=== PATIENT | female | born 1985 | race Caucasian/White ===

== ENCOUNTER 2020-03-05 10:32 | Outpatient (REF) | payer OTHER, SELFPAY ==
--- NOTE | 2020-03-05 10:36 | XR_ITS ---
EXAMINATION: XR CHEST CLINICAL INFORMATION: Positive Covid 19. COMPARISON: None TECHNIQUE: 2 views of the chest were obtained. FINDINGS: No significant abnormality is noted involving the heart, lungs, mediastinum, bony thorax or soft tissues. XR/XR chest 2V IMPRESSION: Unremarkable chest examination.
[2020-03-05 13:52] LABS: MANUAL DIFF FLAG NO
[2020-03-05 13:56] LABS: Basophils Percent Auto 0.4 % (0-2); Eosinophils Absolute Auto 0.1 X10*3/uL (0.0-0.4); Hematocrit 37.7 % (37-47); Hemoglobin 12.6 g/dl (12.0-16.0); Imm Gran Abs Auto 0.02 X10*3/uL (0.00-0.03); Imm Gran Pct Auto 0.3 % (0.0-0.4); Lymphocytes Absolute Auto 2.7 X10*3/uL (1.2-4.9); Lymphocytes Percent Auto 38.9 % (20-40); Mean Corpuscular HGB Conc 33.4 g/dl (31.0-35.0); Mean Corpuscular Volume 86.7 fL (80-98); Mean Platelet Volume 10.4 fL (9.4-12.3); Monocytes Absolute Auto 0.5 X10*3/uL (0.1-1.2); Neutrophils Absolute Auto 3.6 X10*3/uL (2.0-8.3); Neutrophils Percent Auto 51.4 % (45-73); Platelet Count 516 X10*3/uL (160-400); Red Blood Count 4.35 X10*6/uL (4.20-5.50); Red Cell Distribution Width 12.3 % (11.0-16.0)
[2020-03-05 14:17] LABS: Alanine Aminotransferase 20 U/L (0-31); Anion Gap 14 (12-20); Aspartate Amino Transferase 19 U/L (5-31); Blood Urea Nitrogen 9 mg/dL (9-16); Calcium 9.7 mg/dL (8.4-10.2); Carbon Dioxide 26 mmol/L (22-29); Chloride 102 mmol/L (96-108); Cholesterol 156 mg/dL; Estimated Glomerular Filt Rate > 60; Glucose Fasting 83 mg/dL (60-99); HDL Cholesterol 37 mg/dL; Iron 113 mcg/dL (30-160); LDL Cholesterol Calculated 91 mg/dl; Percent Iron Saturation 23 % (15-50); Potassium 4.5 mmol/l (3.3-5.1); Sodium 137 mmol/L (135-145); Total Iron Binding Capacity 488 mcg/dL (228-428); Triglycerides 144 mg/dL; Unsaturated Iron Binding 375 ug/dL
[2020-03-05 14:38] LABS: Ferritin 10 ng/mL (10-122); TSH reflex Free T4 1.68 mIU/mL (0.32-4.0); Vitamin D 25-OH Total 17.8 ng/mL (>30)
[2020-03-05 14:50] LABS: Folate 13.8 ng/mL (> or = 4.0); Vitamin B12 196 pg/mL (200-900)
== END 2020-03-05 10:33 | disposition home or self-care (01) ==
LOC: HO.HMGCLDS 10:32
PROVIDERS: PCP Internal Medicine; Visit Provider Internal Medicine
DX: U07.1 COVID-19 (principal)
CPT/HCPCS: 36415; 71046; 80048; 80061; 82306; 82607; 82728; 82746; 83540; 84443; 84450; 84460; 85025

== ENCOUNTER 2020-03-25 09:17 | Outpatient (REF) | payer OTHER, SELFPAY ==
--- NOTE | 2020-03-25 09:54 | US_ITS ---
EXAMINATION: ULTRASOUND SOFT TISSUE HEAD AND NECK CLINICAL INFORMATION: Localized swelling and lump of the left neck COMPARISON: None TECHNIQUE: Doppler, color and grayscale evaluation of the soft tissues of the left side of the neck FINDINGS: There are multiple abnormal appearing left cervical lymph nodes. There is an abnormal appearing left cervical lymph node that measures 2 x 0.9 x 1.5 cm. This is heterogeneous appearing. Part of this lymph node appears to be hypoechoic with cortical thickening and part of this lymph node appears hyperechoic with bright echogenic foci questionable for cortical calcifications. Renal hilum appear slitlike. Flow to this lymph node is difficult to assess but there appears to be preserved hilar flow. There is an enlarged lymph node that measures 1.7 x 1.7 x 1.2 cm. This is diffusely hypoechoic with diffuse cortical thickening, slitlike hilum and preserved hilar flow. There are additional smaller lymph nodes that appear diffusely hypoechoic with cortical thickening and slitlike hilum. US/US soft tiss head and/or neck IMPRESSION: Enlarged abnormal appearing left cervical lymph nodes. Infectious, inflammatory and neoplastic process should be considered. This would be amenable to ultrasound-guided fine-needle aspiration.
[2020-03-25 11:18] LABS: MANUAL DIFF FLAG NO
[2020-03-25 11:22] LABS: Basophils Percent Auto 0.4 % (0-2); Eosinophils Absolute Auto 0.4 X10*3/uL (0.0-0.4); Eosinophils Percent Auto 5.1 % (0-4); Imm Gran Abs Auto 0.03 X10*3/uL (0.00-0.03); Imm Gran Pct Auto 0.4 % (0.0-0.4); Lymphocytes Absolute Auto 1.6 X10*3/uL (1.2-4.9); Lymphocytes Percent Auto 21.2 % (20-40); Mean Corpuscular HGB Conc 32.4 g/dl (31.0-35.0); Mean Corpuscular Hemoglobin 28.4 pg (27.0-33.0); Mean Corpuscular Volume 87.5 fL (80-98); Monocytes Absolute Auto 0.4 X10*3/uL (0.1-1.2); Monocytes Percent Auto 5.8 % (2-11); Neutrophils Absolute Auto 5.1 X10*3/uL (2.0-8.3); Neutrophils Percent Auto 67.1 % (45-73); Platelet Count 422 X10*3/uL (160-400); Red Blood Count 4.23 X10*6/uL (4.20-5.50); Red Cell Distribution Width 12.8 % (11.0-16.0); White Blood Count 7.6 X10*3/uL (4.8-10.8)
[2020-03-25 11:49] LABS: Anion Gap 10 (12-20); Blood Urea Nitrogen 10 mg/dL (9-16); Calcium 8.7 mg/dL (8.4-10.2); Carbon Dioxide 28 mmol/L (22-29); Chloride 104 mmol/L (96-108); Estimated Glomerular Filt Rate > 60; Glucose Random 94 mg/dL (60-115); Potassium 4.3 mmol/l (3.3-5.1); Sodium 138 mmol/L (135-145)
[2020-03-25 12:00] LABS: TSH reflex Free T4 2.32 mIU/mL (0.32-4.0)
[2020-03-25 12:10] LABS: Erythrocyte Sedimentation Rate 8 MM/HR (0-20)
== END 2020-03-25 09:18 | disposition home or self-care (01) ==
LOC: HO.HMGCLDS 09:17
PROVIDERS: PCP Internal Medicine; Visit Provider Nurse Practitioner Family
DX: R22.1 Localized swelling, mass and lump, neck (principal)
CPT/HCPCS: 36415; 76536; 80048; 84443; 85025; 85652

== ENCOUNTER → 2020-05-27 10:29 | Outpatient (BNVA) | payer OTHER, SELFPAY | PROVIDERS: PCP Internal Medicine; Visit Provider Physician Assistant ==

== ENCOUNTER 2020-06-07 13:03 | Outpatient (REF) | payer OTHER, SELFPAY ==
[2020-06-07 14:44] LABS: MANUAL DIFF FLAG NO
[2020-06-07 14:49] LABS: Basophils Percent Auto 0.7 % (0-2); Eosinophils Absolute Auto 0.2 X10*3/uL (0.0-0.4); Eosinophils Percent Auto 3.8 % (0-4); Hematocrit 37.2 % (37-47); Hemoglobin 11.9 g/dl (12.0-16.0); Imm Gran Abs Auto 0.01 X10*3/uL (0.00-0.03); Imm Gran Pct Auto 0.2 % (0.0-0.4); Lymphocytes Absolute Auto 2.1 X10*3/uL (1.2-4.9); Lymphocytes Percent Auto 38.5 % (20-40); Mean Corpuscular Hemoglobin 26.9 pg (27.0-33.0); Mean Corpuscular Volume 84.2 fL (80-98); Mean Platelet Volume 10.3 fL (9.4-12.3); Monocytes Absolute Auto 0.3 X10*3/uL (0.1-1.2); Monocytes Percent Auto 5.3 % (2-11); Neutrophils Absolute Auto 2.8 X10*3/uL (2.0-8.3); Neutrophils Percent Auto 51.5 % (45-73); Platelet Count 450 X10*3/uL (160-400); Red Blood Count 4.42 X10*6/uL (4.20-5.50); Red Cell Distribution Width 13.8 % (11.0-16.0); White Blood Count 5.5 X10*3/uL (4.8-10.8)
[2020-06-07 15:14] LABS: Alanine Aminotransferase 13 U/L (0-31); Albumin Level 4.5 g/dL (3.5-5.0); Alkaline Phosphatase 71 U/L (39-117); Anion Gap 12 (12-20); Aspartate Amino Transferase 15 U/L (5-31); Bilirubin Total 1.1 mg/dL (0.0-1.0); Blood Urea Nitrogen 8 mg/dL (9-16); Calcium 9.4 mg/dL (8.4-10.2); Carbon Dioxide 26 mmol/L (22-29); Chloride 105 mmol/L (96-108); Estimated Glomerular Filt Rate > 60; Glucose Random 104 mg/dL (60-115); Lactate Dehydrogenase 177 U/L (122-220); Potassium 3.9 mmol/L (3.3-5.1); Sodium 139 mmol/L (135-145); Total Protein 7.5 g/dL (6.5-8.0)
[2020-06-07 15:18] LABS: Alanine Aminotransferase 12 U/L (0-31); Albumin Level 4.5 g/dL (3.5-5.0); Alkaline Phosphatase 72 U/L (39-117); Anion Gap 11 (12-20); Aspartate Amino Transferase 15 U/L (5-31); Bilirubin Total 1.1 mg/dL (0.0-1.0); Blood Urea Nitrogen 8 mg/dL (9-16); Calcium 9.5 mg/dL (8.4-10.2); Carbon Dioxide 26 mmol/L (22-29); Chloride 105 mmol/L (96-108); Estimated Glomerular Filt Rate > 60; Glucose Random 105 mg/dL (60-115); Potassium 3.8 mmol/L (3.3-5.1); Sodium 138 mmol/L (135-145); Total Protein 7.4 g/dL (6.5-8.0)
[2020-06-07 15:28] LABS: Vitamin D 25-OH Total 32.1 ng/mL (>30)
[2020-06-07 15:39] LABS: Folate 10.3 ng/mL (> or = 4.0); Vitamin B12 281 pg/mL (200-900)
[2020-06-08 14:11] LABS: Immunoglobulin A 129 mg/dL (47-310); Immunoglobulin M 82 mg/dL (50-300)
[2020-06-10 04:10] LABS: SARS COV2 IgG Positive (Negative)
[2020-06-11 00:27] LABS: Immunoglobulin G Subclass 1 660 mg/dL (382-929); Immunoglobulin G Subclass 2 512 mg/dL (241-700); Immunoglobulin G Subclass 3 89 mg/dL (22-178); Immunoglobulin G Subclass 4 20.2 mg/dL (4-86); Immunoglobulin G Total 1223 mg/dL (600-1640)
[2020-06-19 00:21] LABS: Tetanus Antitoxiod Antibody 3.39 IU/mL
== END 2020-06-07 13:04 | disposition home or self-care (01) ==
LOC: HO.HMGCLDS 13:03
PROVIDERS: PCP Internal Medicine; Referring Provider Nurse Practitioner Family; Visit Provider Physician Assistant
DX: R59.1 Generalized enlarged lymph nodes (principal); R23.2 Flushing; Z01.84 Encounter for antibody response examination; R74.01 Elevation of levels of liver transaminase levels; R10.11 Right upper quadrant pain; E53.8 Deficiency of other specified B group vitamins; E55.9 Vitamin D deficiency, unspecified
CPT/HCPCS: 36415; 80053; 82306; 82607; 82746; 82784; 83520; 83615; 85025; 86769; 86774

== ENCOUNTER → 2020-07-09 10:23 | Outpatient (BNVA) | payer OTHER, SELFPAY | PROVIDERS: PCP Internal Medicine; Visit Provider Physician Assistant ==

== ENCOUNTER 2020-08-16 13:37 | Outpatient (REF) | payer OTHER, SELFPAY ==
[2020-08-18 07:27] LABS: SARS COV2 IgG Negative (Negative)
== END 2020-08-16 13:38 | disposition home or self-care (01) ==
LOC: HO.HMGCLDS 13:37
PROVIDERS: PCP Internal Medicine; Visit Provider Internal Medicine
DX: B94.8 Sequelae of other specified infectious and parasitic diseases (principal); K64.9 Unspecified hemorrhoids
CPT/HCPCS: 36415; 86769

== ENCOUNTER 2021-03-26 16:20 | Outpatient (REF) | payer OTHER, SELFPAY ==
--- NOTE | ~2021-03-26 | CT_ITS ---
EXAMINATION: CT CHEST WITHOUT CONTRAST CLINICAL INFORMATION: Other nonspecific abnormal finding of lung field. COMPARISON: None TECHNIQUE: Multidetector volumetric CT imaging of the chest was done. Axial MIP volume rendering provided. Sagittal and coronal reformatted images were obtained. This CT examination was performed using dose optimization techniques as appropriate, variously including the following: *Automated exposure control *Adjustment of mA and/or kV according to patient size (this includes techniques or standardized protocols for targeted exams where dose is matched to indication/reason for exam; i.e. 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 LUNGS: There are a few scattered 3 mm subpleural polygonal nodules consistent with lymph nodes. No imaging follow-up is recommended. There is no airspace disease or interstitial disease demonstrated. The airways appear normal. No bronchiectasis. MEDIASTINUM: The mediastinum is normal. PLEURA: There is no pleural effusion. No pleural mass or thickening. AXILLA: No lymphadenopathy. UPPER ABDOMEN: Unremarkable. OSSEOUS STRUCTURES: Unremarkable. CT/CT chest wo con IMPRESSION: Clear lungs. No airspace or interstitial disease. Fleischner guidelines were followed.
--- NOTE | ~2021-03-26 | XR_ITS ---
EXAMINATION: XR HIP, RIGHT CLINICAL INFORMATION: Pain COMPARISON: None TECHNIQUE: Two views of the right hip. FINDINGS: Visualized portion of the proximal right femur demonstrate no fracture. Right femoral head is well-seated within the acetabulum. Right femoral acetabular joint space is well-maintained. The pelvic ring is intact. Sacroiliac joints are grossly symmetric. XR/XR hip RT w PEL1V IMPRESSION: Unremarkable radiographs of the right hip.
== END 2021-03-26 16:21 | disposition home or self-care (01) ==
LOC: HO.CT 16:20
PROVIDERS: PCP Internal Medicine; Visit Provider Internal Medicine
DX: B94.8 Sequelae of other specified infectious and parasitic diseases (principal); R91.8 Other nonspecific abnormal finding of lung field; G89.29 Other chronic pain; M25.551 Pain in right hip; R59.0 Localized enlarged lymph nodes
CPT/HCPCS: 71250; 73502

== ENCOUNTER 2021-04-18 09:53 | Outpatient (REF) | payer OTHER, SELFPAY ==
[2021-04-18 11:12] LABS: MANUAL DIFF FLAG NO
[2021-04-18 11:19] LABS: Basophils Absolute Auto 0.1 X10*3/uL (0.0-0.2); Basophils Percent Auto 0.8 % (0-2); Eosinophils Absolute Auto 0.2 X10*3/uL (0.0-0.4); Eosinophils Percent Auto 3.2 % (0-4); Hematocrit 34.7 % (37.0-47.0); Hemoglobin 10.7 g/dl (12.0-16.0); Imm Gran Abs Auto 0.02 X10*3/uL (0.00-0.03); Imm Gran Pct Auto 0.3 % (0.0-0.4); Lymphocytes Absolute Auto 2.6 X10*3/uL (1.2-4.9); Lymphocytes Percent Auto 36.5 % (20-40); Mean Corpuscular HGB Conc 30.8 g/dl (31.0-35.0); Mean Corpuscular Hemoglobin 25.2 pg (27.0-33.0); Mean Corpuscular Volume 81.8 fL (80.0-98.0); Mean Platelet Volume 10.1 fL (9.4-12.3); Monocytes Absolute Auto 0.4 X10*3/uL (0.1-1.2); Neutrophils Absolute Auto 3.8 x10*3/uL (2.0-8.3); Neutrophils Percent Auto 53.2 % (45-73); Platelet Count 536 X10*3/uL (160-400); Red Blood Count 4.24 X10*6/uL (4.20-5.50); Red Cell Distribution Width 13.8 % (11.0-16.0); White Blood Count 7.2 X10*3/uL (4.8-10.8)
[2021-04-18 11:42] LABS: Alanine Aminotransferase 26 U/L (0-31); Anion Gap 12 (12-20); Aspartate Amino Transferase 21 U/L (5-31); Blood Urea Nitrogen 8 mg/dL (9-16); Calcium 9.5 mg/dL (8.4-10.2); Carbon Dioxide 25 mmol/L (22-29); Chloride 107 mmol/L (96-108); Cholesterol 143 mg/dL; Estimated Glomerular Filt Rate > 60; Glucose Fasting 92 mg/dL (60-99); HDL Cholesterol 30 mg/dL; LDL Cholesterol Calculated 79 mg/dl; Potassium 4.5 mmol/L (3.3-5.1); Sodium 139 mmol/L (135-145); Triglycerides 172 mg/dL
[2021-04-18 12:03] LABS: Vitamin D 25-OH Total 26.3 ng/mL (>30)
[2021-04-18 12:13] LABS: Folate 17.8 ng/mL (> or = 4.0); Vitamin B12 257 pg/mL (200-900)
== END 2021-04-18 09:54 | disposition home or self-care (01) ==
LOC: HO.HMGCLDS 09:53
PROVIDERS: PCP Internal Medicine; Visit Provider Internal Medicine
DX: Z00.01 Encounter for general adult medical examination with abnormal findings (principal); I10 Essential (primary) hypertension; D50.9 Iron deficiency anemia, unspecified; E53.8 Deficiency of other specified B group vitamins; E55.9 Vitamin D deficiency, unspecified
CPT/HCPCS: 36415; 80048; 80061; 82306; 82607; 82746; 84450; 84460; 85025

== ENCOUNTER → 2021-04-25 10:22 | Outpatient (BNVA) | payer OTHER, SELFPAY | PROVIDERS: PCP Internal Medicine; Visit Provider Physician Assistant | DX: M54.16 Radiculopathy, lumbar region (principal) | CPT/HCPCS: 99202 ==

== ENCOUNTER → 2021-06-18 13:47 | Outpatient (BNVA) | payer OTHER, SELFPAY | PROVIDERS: PCP Internal Medicine; Visit Provider Nurse Practitioner Family | DX: M53.3 Sacrococcygeal disorders, not elsewhere classified (principal) | CPT/HCPCS: 99202 ==

== ENCOUNTER 2021-08-07 08:34 | Outpatient (REF) | payer OTHER, SELFPAY ==
[2021-08-08 06:48] LABS: CT PCR NOT DETECTED (Not Detect.); NG PCR NOT DETECTED (Not Detect.)
[2021-08-08 12:51] LABS: BV Int Neg Control Negative (Negative); BV Int Pos Control Positive (Positive)
[2021-08-12 01:31] LABS: HPV mRNA E6/E7 rflx Not Detected (Not Detected)
== END 2021-08-07 08:35 | disposition home or self-care (01) ==
LOC: HO.LAB 08:34
PROVIDERS: Visit Provider Advanced Practice Midwife
DX: Z01.411 Encounter for gynecological examination (general) (routine) with abnormal findings (principal); Z11.51 Encounter for screening for human papillomavirus (HPV); Z20.2 Contact with and (suspected) exposure to infections with a predominantly sexual mode of transmission; N39.3 Stress incontinence (female) (male); N63.0 Unspecified lump in unspecified breast; M62.89 Other specified disorders of muscle; N92.0 Excessive and frequent menstruation with regular cycle; E28.2 Polycystic ovarian syndrome; Z98.890 Other specified postprocedural states
CPT/HCPCS: 87480; 87491; 87510; 87591; 87624; 87660; 88142

== ENCOUNTER 2021-09-09 12:48 | Outpatient (REF) | payer OTHER, SELFPAY ==
--- NOTE | ~2021-09-09 | US_ITS ---
EXAMINATION: US PELVIS CLINICAL INFORMATION: Polycystic ovarian syndrome COMPARISON: None TECHNIQUE: Ultrasound of the pelvis is performed using both transabdominal and transvaginal transducers along with Doppler. Transvaginal imaging is performed due to inadequate visualization transabdominally. FINDINGS: Uterus: The uterus is anteverted and measures 11.0 x 4.9 x 6.1 cm. Nabothian cysts present within the cervix. The double wall endometrial thickness is 10 mm. The uterus is smooth in contour and has normal myometrial echogenicity. No visible fibroid. Adnexa: Both ovaries are visualized. Numerous bilateral follicles present throughout both ovaries, many of which are small in peripherally distributed, however there are dominant follicles within the left ovary which measure up to 1.7 cm. The ovarian stroma does not appear particularly echogenic. There is no pelvic ascites or fluid collection. Right ovary measures 3.3 x 1.7 x 2.1 cm. Left ovary measures 4.0 x 2.3 x 2.2 cm. US/US pelvic and transvaginal IMPRESSION: There are bilateral ovarian follicles. The right ovary has an appearance which is more typical for polycystic ovarian syndrome with numerous tiny peripherally distributed follicles central echogenic stroma, however the right ovary is not particularly enlarged. Left ovary has a more heterogeneous (size and appearance) follicles with the largest measuring 1.7 cm. As such, the imaging findings are nonspecific, and possibly normal.
== END 2021-09-09 12:49 | disposition home or self-care (01) ==
LOC: HO.US 12:48
PROVIDERS: Visit Provider Advanced Practice Midwife
DX: M62.89 Other specified disorders of muscle (principal); N63.0 Unspecified lump in unspecified breast; N92.0 Excessive and frequent menstruation with regular cycle; E28.2 Polycystic ovarian syndrome
CPT/HCPCS: 76830; 76856

== ENCOUNTER 2022-01-22 08:00 | Outpatient (RCR) | payer OTHER, SELFPAY | END 2022-02-17 11:39 | disposition home or self-care (01) | LOC: HO.PT 08:00 | PROVIDERS: PCP Internal Medicine; Visit Provider Advanced Practice Midwife | DX: N39.3 Stress incontinence (female) (male) (principal) | CPT/HCPCS: 97112; 97140; 97161; 97530 ==

== ENCOUNTER 2022-06-05 12:48 | Outpatient (REF) | payer OTHER, SELFPAY ==
[2022-06-05 14:15] LABS: MANUAL DIFF FLAG NO
[2022-06-05 14:22] LABS: Basophils Percent Auto 0.6 % (0-2); Eosinophils Absolute Auto 0.1 X10*3/uL (0.0-0.4); Eosinophils Percent Auto 1.9 % (0-4); Hemoglobin 12.1 g/dl (12.0-16.0); Imm Gran Abs Auto 0.01 X10*3/uL (0.00-0.03); Imm Gran Pct Auto 0.1 % (0.0-0.4); Lymphocytes Absolute Auto 3.1 X10*3/uL (1.2-4.9); Lymphocytes Percent Auto 44.8 % (20-40); Mean Corpuscular HGB Conc 32.7 g/dl (31.0-35.0); Mean Corpuscular Hemoglobin 27.8 pg (27.0-33.0); Mean Corpuscular Volume 85.1 fL (80.0-98.0); Mean Platelet Volume 10.5 fL (9.4-12.3); Monocytes Absolute Auto 0.4 X10*3/uL (0.1-1.2); Monocytes Percent Auto 5.7 % (2-11); Neutrophils Absolute Auto 3.2 x10*3/uL (2.0-8.3); Neutrophils Percent Auto 46.9 % (45-73); Platelet Count 441 X10*3/uL (160-400); Red Blood Count 4.35 X10*6/uL (4.20-5.50); Red Cell Distribution Width 12.6 % (11.0-16.0); White Blood Count 6.9 X10*3/uL (4.8-10.8)
[2022-06-05 14:52] LABS: Iron 55 mcg/dL (30-160); Percent Iron Saturation 13 % (15-50); Total Iron Binding Capacity 408 mcg/dL (228-428); Unsaturated Iron Binding 353 ug/dL
[2022-06-05 15:07] LABS: Vitamin D 25-OH Total 22.8 ng/mL (>30)
== END 2022-06-05 12:49 | disposition home or self-care (01) ==
LOC: HO.HMGCLDS 12:48
PROVIDERS: Visit Provider Internal Medicine
DX: D50.9 Iron deficiency anemia, unspecified (principal); E55.9 Vitamin D deficiency, unspecified
CPT/HCPCS: 36415; 82306; 83540; 85025

== ENCOUNTER 2022-09-17 10:32 | Outpatient (REF) | payer OTHER, SELFPAY ==
[2022-09-18 11:12] LABS: BV Int Neg Control Negative (Negative); BV Int Pos Control Positive (Positive)
== END 2022-09-17 10:33 | disposition home or self-care (01) ==
LOC: HO.LNP 10:32
PROVIDERS: PCP Internal Medicine; Visit Provider Advanced Practice Midwife
DX: N94.9 Unspecified condition associated with female genital organs and menstrual cycle (principal)
CPT/HCPCS: 87480; 87510; 87660

== ENCOUNTER 2022-10-15 07:57 | Outpatient (AMB) | payer OTHER, SELFPAY ==
--- NOTE | 2022-10-15 07:58 | A.OFFPC_ITS ---
Vital Signs 10/15/22 08:00 Height 5 ft 4 in Weight 185 lb BMI 31.8 BP 104/66 Blood Pressure Location Lt brachial Position Sitting Pulse 73 Pulse Source Pulse Oximeter Pulse Oximetry (%) 99 Oxygen Delivery Method Room Air Intake Visit Reasons: Annual PE Intake Note: Pt is here today for PE. Allergies morphine [MORPHINE] Allergy (Severe, Verified 10/15/22 08:08) VOMITING Opioids - Morphine Analogues Allergy (Mild, Verified 10/15/22 08:08) Vomiting Medication List - Last Reconciled 10/15/22 by Alison Martin MD lorazepam 0.5 mg PO DAILY PRN multivitamin 1 tab PO DAILY vitamin B complex (B Complex-Vitamin B12 tablet) 1 tab PO DAILY Tobacco use date assessed: 10/15/22 Dental Screening Dental Screen Date: 10/15/22 Did you have a dental visit in the last 12 months?: Yes Did you have a dental problem in the last 6 months where you did not have access to dental care?: No Was dental information given to patient?: Patient has dentist HPI Annual PE HPI Details 37-year-old lady here today for physical exam. His currently being followed at [facility] for her routine Pap and pelvic exam and for possible polycystic ovarian syndrome. Up-to-date with her cervical cancer screening, with last Pap done in 2021 with benign findings. Has history of vitamin-D deficiency and low vitamin B12 levels. Currently asymptomatic. Takes an occasional lorazepam for acute anxiety attacks. Has been having pain in her right hip joint, outer aspect, radiating occasionally to right inguinal area and down right thigh outer aspect. Unable to squat or sit cross-legged on the floor due to pain. Has been compensating home with her left leg and now gets pain in the back of her left knee when she sits or stands for extended periods of time . He has tried doing physical therapy the past for the same issue with noted improvement, x-ray of hip and pelvis last year showed unremarkable findings. [facility] Medical History (Updated 10/15/22 @ 08:31 by Alison Martin MD) Anxiety disorder Cervical cancer screening COVID-19 long hauler COVID-19 virus infection Diffuse lymphadenopathy Epigastric abdominal pain Hemorrhoids Hip pain, chronic History of COVID-19 IBS (irritable bowel syndrome) Iron deficiency anemia Lateral pain of right hip Left axillary fullness Left cervical lymphadenopathy Obesity (BMI 30.0-34.9) Post-COVID syndrome Pulmonary nodules/lesions, multiple Urticaria of unknown origin Vitamin B12 deficiency Vitamin D deficiency Surgical History History of tonsillectomy Hx of lymph node biopsy S/P Family History Father AIDS Substance use disorder Mother AIDS Substance use disorder Maternal Grandmother Alzheimer's disease Dementia HTN (hypertension) Diabetes mellitus Brother Substance use disorder Mental health disorder Son No problems noted. 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: [employer] Cognitive needs: No Hearing needs: No Vision needs: Yes Female Reproductive History Menstrual Age of Menarche: 11 Date of last menstrual period: 10/06/22 control method: none Date of last pap smear: 08/08/21 Questionnaire PHQ-9 Over the last 2 weeks, how often have you been bothered by any of the following problems? 1. Little interest or pleasure in doing things: not at all 2. Feeling down, depressed, or hopeless: not at all 3. Trouble falling or staying asleep, or sleeping too much: not at all 4. Feeling tired or having little energy: several days 5. Poor appetite or overeating: not at all 6. Feeling bad about yourself - or that you are a failure or have let yourself or your family down: not at all 7. Trouble concentrating on things, such as reading the newspaper or watching television: not at all 8. Moving or speaking so slowly that other people could have noticed. Or the opposite - being so fidgety or restless that you have been moving around a lot more than usual: not at all 9. Thoughts that you would be better off or of hurting yourself in some way: not at all Total score: 1 Depression Screening Interpretation: Negative 18774 - PHQ-9 Billing: Yes Source: Developed by Drs. Kendrick Mchugh, Alexander Goetz and colleagues, with an educational kacie from [employer]. Thrive Questionnaire Date Thrive assessed: 10/15/22 I am a: Patient What is your living situation today?: I have a steady place to live Within the past 12 months, did the food you bought not last and you didn't have the money to get more?: Never true Within the past 12 months, did you worry whether your food would run out before you got money to buy more?: Never true Do you have trouble paying for medicines?: No Do you have trouble getting transportation to medical appointments?: No Do you have trouble paying your heating and electricity bill?: No Do you have trouble taking care of your child, family member or friend?: No Do you have trouble with day-to-day activities such as bathing, preparing meals, shopping, managing finances, etc.?: No Are you currently unemployed and looking for a job?: No Are you interested in more education?: No AUDIT C Alcohol Use Questionnaire (AUDIT-C) 1. How often do you have a drink containing alcohol?: Monthly or less 2. How many drinks containing alcohol do you have on a typical day when you are drinking?: 1 or 2 3. How often do you have six or more drinks on one occasion?: Never Total Score: 1 PAOLA-7 AMB Questionnaire PAOLA-7 Date PAOLA - 7 assessed: 10/15/22 Feeling nervous, anxious, or on edge: 0 = Not at all Not being able to stop or control worryin = Not at all Worrying too much about different things: 0 = Not at all Trouble relaxin = Not at all Being so restless that it is hard to sit still: 0 = Not at all Becoming easily annoyed or irritable: 0 = Not at all Feeling afraid as if something awful might happen: 0 = Not at all Total PAOLA-7 score (0-4 normal; 5-9 mild; 10-14 moderate; 15-21 severe): 0 Source: Developed by Drs. Kendrick Mchugh, Alexander Goetz and colleagues, with an educational kacie from [employer]. PAOLA-7 Assessment Billing PAOLA-7 Assessment Tool: PAOLA-7 Assessment 53967 Review of Systems Const Denies body aches, Denies chills, Denies fever(s), Denies headache(s) and Repor ts malaise Eyes Denies change in vision ENT Denies dizziness, Denies headache(s), Denies hoarseness, Denies nasal discharge, Denies nose pain, Denies odynophagia, Denies post nasal drip and Denies sore throat Card Denies chest pain, Denies rapid heart rate, Denies lightheadedness and Denies dyspnea Resp Denies cough, Denies pain on inspiration, Denies dyspnea and Denies wheezing GI Denies abdominal pain, Reports constipation (Occasional), Denies heartburn, Denies nausea and Denies odynophagia Reports no additional complaints Musc Reports as per HPI Skin/Breast Denies breast pain, Denies breast mass and Denies rash Neuro Denies dizziness and Denies headache(s) Psych Reports no additional complaints Endo Reports no additional complaints Andre/Lymph Reports no additional complaints Aller/Immun Denies wheezing Physical exam (Primary Care) Vital Signs: Last Vital Signs Pulse 73 10/15/22 08:00 BP 104/66 10/15/22 08:00 Pulse Ox 99 10/15/22 08:00 Oxygen Delivery Method Room Air 10/15/22 08:00 BMI result Body Mass Index 31.8 Tobacco/Smoking Status: Tobacco use Status Tobacco use date assessed 10/15/22 10/15/22 08:06 Patient Tobacco Use Status Former Tobacco user 10/15/22 07:59 PHQ-9: PHQ-9 Score PHQ-9: Total score 1 10/15/22 08:42 Depression Screening Interpretation: Negative Thrive Assessment: Date of Thrive Assessment Date Thrive assessed 10/15/22 10/15/22 08:06 Const General: comfortable and no acute distress Nutritional Appearance: obese Orientation/consciousness: patient oriented x3 HENMT Ears: hearing grossly normal bilaterally, external ears normal, TM's normal bilaterally and EAC's normal General nose exam: Normal external nose present, Normal nasal mucous membranes and turbinates present and No nasal discharge present Face and sinus: Yes face symmetric Mouth: Normal oral and palatal mucosa present, oropharynx normal and moist muco us membranes Eyes Other: Pale palpebral conjunctiva, anicteric Periorbital: periorbital findings normal Eyelids: Yes eyelids normal Pupils: Equal, round and reactive pupils present EOM: EOMs intact bilaterally Neck Neck: Yes full ROM, Yes no lymphadenopathy and Yes supple Chest Chest palpation & inspection: normal inspection of the chest and normal palpation of entire chest wall Breast/axilla inspection: normal inspection of the breasts and normal inspection of the axillae Breast/axilla palpation: normal palpation of the breasts and normal palpation of the axillae Resp Effort & Inspection: normal respiratory effort and able to speak in complete sentences Auscultation: clear to auscultation bilaterally Cardio Other: S1-S2 present regular rate and rhythm GI Palpation (GI): Soft to palpation, nontender, no guarding and no masses Auscultation: normal bowel sounds General: Yes no CVA tenderness Back/Spine/Pelvis Back: no CVA tenderness and No back tenderness Skin General skin exam: no rashes or lesions noted Neuro General: patient oriented x3, gait normal, moves all extremities, Normal light touch and pain sensation, no focal motor deficits, CN's II-XI intact bilaterally and normal sensation to monofilament Cranial nerves: Yes Equal, round and reactive pupils present Extrem Other: Pain on abduction flexion of right hip joint, slight tenderness on palpation over lateral aspect of right hip General: Yes normal to inspection, Yes full ROM, Yes no joint enlargement, Yes no pedal edema, Yes no calf tenderness and Yes normal gait Psych Appearance: grossly normal Mental Status: mental status grossly normal Speech and movement: Normal speech and movement present Affect: normal affect Thought process: Normal thought process present Assessment and Plan Assessment & Plan (1) Annual visit for general adult medical examination with abnormal findings: Code(s): Z00.01 - Encounter for general adult medical examination with abnormal findings Plan: Will check appropriate labs. Continue regular dental visit every 6 months and regular eye exams, at least every 2 years. Take adequate calcium in diet and vitamin-D 3 at 2000 IU per cap once a day, in addition to getting regular exercise, try aquatic exercises at the [facility]. do self-breast exam, and recommended to get yearly mammogram, starting at age 40. Patient has had reactions from COVID vaccinations does not want to get vaccinated again advised to get yearly flu shots, up-to-date with her Tdap (2) Vitamin D deficiency: Code(s): E55.9 - Vitamin D deficiency, unspecified Plan: Will check vitamin-D level (3) Anxiety disorder: Code(s): F41.9 - Anxiety disorder, unspecified Qualifiers: Anxiety disorder type: panic disorder without agoraphobia Qualified Code(s): F41.0 - Panic disorder [episodic paroxysmal anxiety] Plan: Occurs occasionally, takes lorazepam as needed (4) PCOS (polycystic ovarian syndrome): Code(s): E28.2 - Polycystic ovarian syndrome Plan: Currently being followed by [facility] (5) Obesity (BMI 30.0-34.9): Code(s): E66.9 - Obesity, unspecified Plan: Encouraged to healthy diet, cut back on lot of carbohydrate intake, try doing aquatic exercises, which will not aggravate her right hip pain. (6) Hx of iron deficiency anemia: Code(s): Z86.2 - Personal history of diseases of the blood and blood-forming organs and certain disorders involving the immune mechanism Plan: Will check hemoglobin hematocrit and iron profile. Encouraged to eat more green leafy vegetables, and lean meat which contains iron (7) Lateral pain of right hip: Code(s): M25.551 - Pain in right hip Plan: Pain now radiating to right groin and down lateral aspect of right thigh, has tried physical therapy in the past which has not helped. [place] back to orthopedics for further evaluation management (8) Hx of non anemic vitamin B12 deficiency: Code(s): Z86.39 - Personal history of other endocrine, nutritional and metabolic disease Plan: Currently taking vitamin B12 supplements, will check B12 level Orders: Orders Vitamin B12 and Folate Today E55.9 - Vitamin D deficiency, unspecified, E66.9 - Obesity, unspecified, Z00.01 - Encounter for general adult medical examination with abnormal findings, Z13.1 - Encounter for screening for diabetes mellitus, Z13.220 - Encounter for screening for lipoid disorders, Z86.39 - Personal history of other endocrine, nutritional and metabolic disease Glucose Fasting Today E55.9 - Vitamin D deficiency, unspecified, E66.9 - Obesity, unspecified, Z00.01 - Encounter for general adult medical examination with abnormal findings, Z13.1 - Encounter for screening for diabetes mellitus, Z13.220 - Encounter for screening for lipoid disorders Lipid Panel Today E55.9 - Vitamin D deficiency, unspecified, E66.9 - Obesity, unspecified, Z00.01 - Encounter for general adult medical examination with abnormal findings, Z13.1 - Encounter for screening for diabetes mellitus, Z13.220 - Encounter for screening for lipoid disorders Vitamin D 25-OH Total Today E55.9 - Vitamin D deficiency, unspecified, E66.9 - Obesity, unspecified, Z00.01 - Encounter for general adult medical examination with abnormal findings, Z13.1 - Encounter for screening for diabetes mellitus, Z13.220 - Encounter for screening for lipoid disorders IRON PROFILE Today Z86.2 - Personal history of diseases of the blood and blood- forming organs and certain disorders involving the immune mechanism Hemoglobin and Hematocrit Today Z86.2 - Personal history of diseases of the blood and blood-forming organs and certain disorders involving the immune mechanism Referrals Orthopedics Referral M25.551 - Pain in right hip Coding Level of Care Code Est Pt [facility] Care [id number]) Diagnoses Annual visit for general adult medical examination with abnormal findings Z00.01 Vitamin D deficiency E55.9 Anxiety disorder F41.0 Anxiety disorder type: panic disorder without agoraphobia PCOS (polycystic ovarian syndrome) E28.2 Obesity (BMI 30.0-34.9) E66.9 Hx of iron deficiency anemia Z86.2 Lateral pain of right hip M25.551 Hx of non anemic vitamin B12 deficiency Z86.39 Additional Codes PAOLA-7 Assessment Billing - PAOLA-7 Assessment Tool: PAOLA-7 Assessment [id number] ([id number])
[2022-10-15 08:00] VITALS: BP 104/66; PULSE 73; O2SAT 99; BMI 31.8
== END 2022-10-15 11:05 | disposition home or self-care (01) ==
PROVIDERS: Visit Provider Internal Medicine
DX: Z00.01 Encounter for general adult medical examination with abnormal findings (principal); E55.9 Vitamin D deficiency, unspecified; E28.2 Polycystic ovarian syndrome; Z86.2 Personal history of diseases of the blood and blood-forming organs and certain disorders involving the immune mechanism; Z86.39 Personal history of other endocrine, nutritional and metabolic disease; F41.0 Panic disorder [episodic paroxysmal anxiety]; E66.9 Obesity, unspecified; M25.551 Pain in right hip
CPT/HCPCS: 99395

== ENCOUNTER 2022-10-15 08:36 | Outpatient (REF) | payer BC, OTHER, SELFPAY ==
[2022-10-15 12:08] LABS: Hematocrit 36.5 % (37.0-47.0); Hemoglobin 11.5 g/dl (12.0-16.0)
[2022-10-15 13:00] LABS: Cholesterol 173 mg/dL; Glucose Fasting 88 mg/dL (60-99); HDL Cholesterol 38 mg/dL; Iron 82 mcg/dL (30-160); LDL Cholesterol Calculated 100 mg/dl; Percent Iron Saturation 18 % (15-50); Total Iron Binding Capacity 452 mcg/dL (228-428); Triglycerides 179 mg/dL; Unsaturated Iron Binding 370 ug/dL; Vitamin D 25-OH Total 47.7 ng/mL (>30)
[2022-10-15 13:03] LABS: Vitamin B12 289 pg/mL (200-900)
== END 2022-10-15 08:37 | disposition home or self-care (01) ==
LOC: HO.HMGCLDS 08:36
PROVIDERS: PCP Internal Medicine; Visit Provider Internal Medicine
DX: Z00.01 Encounter for general adult medical examination with abnormal findings (principal); E66.9 Obesity, unspecified; E55.9 Vitamin D deficiency, unspecified; Z13.220 Encounter for screening for lipoid disorders; Z13.1 Encounter for screening for diabetes mellitus; Z86.39 Personal history of other endocrine, nutritional and metabolic disease; Z86.2 Personal history of diseases of the blood and blood-forming organs and certain disorders involving the immune mechanism
CPT/HCPCS: 36415; 80061; 82306; 82607; 82746; 82947; 83540; 85014; 85018

== ENCOUNTER 2022-11-06 09:41 | Outpatient (REF) | payer OTHER, BC, SELFPAY ==
--- NOTE | ~2022-11-06 | XR_ITS ---
EXAMINATION: XR PELVIS CLINICAL INFORMATION: Pain in unspecified hip COMPARISON: 03/26/2021 TECHNIQUE: AP view of the pelvis. FINDINGS: Bilateral hip joint spaces are symmetric and preserved. Hypertrophic change/soft tissue calcifications identified adjacent to the bilateral greater trochanters. Mild asymmetric degenerative changes with sclerosis left sacroiliac joint. Tiny calcification right hemipelvis likely vascular. XR/XR pelvis 1-2V IMPRESSION: Symmetric bilateral hip joint spaces on single AP view. Mild asymmetric degenerative changes with sclerosis left sacroiliac joint. Additional imaging with CT scan or MRI should be considered for better visualization as these modalities are much more sensitive for detection of fracture or other underlying pathology.
== END 2022-11-06 09:42 | disposition home or self-care (01) ==
LOC: HO.HOSX 09:41
PROVIDERS: Visit Provider Orthopaedic Surgery
DX: M25.851 Other specified joint disorders, right hip (principal)
CPT/HCPCS: 72170; 99212

== ENCOUNTER 2022-11-06 10:20 | Outpatient (AMB) | payer OTHER, BC, SELFPAY ==
[2022-11-06 10:31] VITALS: BMI 31.8
--- NOTE | 2022-11-06 10:31 | MHC.OFFVIS ---
Intake Vital Signs 11/06/22 10:31 Height 5 ft 4 in Weight 185 lb BMI 31.8 Intake Visit Reasons: OV - Rt hip pain Intake Note: Denisse is a 37 year old female who presents today for a follow up of her right hip pain. She was last seen with Janene who referred her to Pain Mgmt for radiculopathy, she did follow up with pain for this. She complains of increased pain that now is felt in the groin area. She feels increased pain with prolonged sitting, crossing her legs and finds releif with increased acitivity. Allergies morphine [MORPHINE] Allergy (Severe, Verified 10/15/22 08:08) VOMITING Opioids - Morphine Analogues Allergy (Mild, Verified 10/15/22 08:08) Vomiting HPI OV - Rt hip pain HPI Details Denisse Carroll is a 37-year-old female who presents with right hip pain. The patient was last seen by in the office by Janene Kruger PA-C, who referred her to Pain Management for radiculopathy. She states she has had an increase in pain in the since being seen in the office. She reports the pain is now located in the groin area. She claims she has an increase in pain with prolonged sitting and crossing her legs. She states she has some relief with increased activities. She states she attend physical therapy for a few months and completed all her sessions. [facility] Medical History Anxiety disorder Cervical cancer screening COVID-19 long hauler COVID-19 virus infection Diffuse lymphadenopathy Epigastric abdominal pain Hemorrhoids Hip pain, chronic History of COVID-19 IBS (irritable bowel syndrome) Iron deficiency anemia Lateral pain of right hip Left axillary fullness Left cervical lymphadenopathy Obesity (BMI 30.0-34.9) Post-COVID syndrome Pulmonary nodules/lesions, multiple Urticaria of unknown origin Vitamin B12 deficiency Vitamin D deficiency Surgical History History of tonsillectomy Hx of lymph node biopsy S/P Family History Father AIDS Substance use disorder Mother AIDS Substance use disorder Maternal Grandmother Alzheimer's disease Dementia HTN (hypertension) Diabetes mellitus Brother Substance use disorder Mental health disorder Son No problems noted. 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 Cognitive needs: No Hearing needs: No Vision needs: Yes Female Reproductive History Menstrual Age of Menarche: 11 Review of Systems Const All systems reviewed & are unremarkable except as noted in HPI and below Physical Exam Vital Signs: BMI result Body Mass Index 31.8 Const General: cooperative, healthy appearing and no acute distress Orientation/consciousness: patient oriented x3 Resp Effort & Inspection: normal respiratory effort and able to speak in complete sentences Cardio Rate: regular rate Peripheral pulses: Peripheral pulses 2+ throughout GI Palpation (GI): Soft to palpation Skin General skin exam: no rashes or lesions noted Lesions: no lesions Rashes: no rashes Neuro General: patient oriented x3 Extrem Other: Right hip: Full ROM in the right hip Groin pain with flexion and external rotation, more so with flexion and internal rotation. Negative hip flexor test. Assessment & Plan Assessment & Plan (1) Right hip impingement syndrome: Code(s): M25.851 - Other specified joint disorders, right hip Plan I discussed the role of an intra-articular injection in the right hip and physical therapy as a non-surgical option verses surgical intervention. At this time she is not interested in surgical intervention and would like to defer the MRI at this time. She will call the office should she want to move forward with the MRI. She will be referred for physical therapy for hip impingement syndrome. Orders: Orders XR pelvis 1-2V 11/06/22 M25.559 - Pain in unspecified hip PT Evaluation and Treatment 11/06/22 M25.851 - Other specified joint disorders, right hip Patient Instructions: Scribed for Dr. Adeel Medellin by Ruthie Fernandez medical recruiter, on 10/27/2022 at 10:46 am, EST. Coding Level of Care Code Est Pt Level 4 (82067) Diagnoses Right hip impingement syndrome M25.851
== END 2022-11-06 11:24 | disposition home or self-care (01) ==
PROVIDERS: PCP Internal Medicine; Visit Provider Orthopaedic Surgery
DX: M25.851 Other specified joint disorders, right hip (principal)
CPT/HCPCS: 99214

== ENCOUNTER 2022-11-26 08:07 | Outpatient (AMB) | payer BC, OTHER, SELFPAY ==
[2022-11-26 08:11] VITALS: BP 126/70; PULSE 73; TEMP 36.4; O2SAT 100; BMI 31.6
--- NOTE | 2022-11-26 08:11 | MHC.OFFWIV ---
Intake Vital Signs 11/26/22 08:11 Height 5 ft 4 in Weight 184 lb 2 oz BMI 31.6 BP 126/70 Blood Pressure Location Lt brachial Position Sitting Pulse 73 Pulse Source Pulse Oximeter Temp 97.6 F Temp Source Temporal Artery Scan Pulse Oximetry (%) 100 Intake Visit Reasons: EP, Right hip pain Intake Note: pt is here for c/o right hip pain denies injury. ongoing issue sees ortho but pain has been worse then ever and unable to put weight Patient Tobacco Use Status: Former Tobacco user Allergies morphine [MORPHINE] Allergy (Severe, Verified 11/26/22 08:18) VOMITING Opioids - Morphine Analogues Allergy (Mild, Verified 11/26/22 08:18) Vomiting Do you need a note to return to daycare/school/sports/work: Yes HPI HPI Comments History of Present Illness Details 37-year-old female presents with right hip pain. Patient has had ongoing issues with her hip off and on. She has been to orthopedics and physical therapy without much relief. The pain started approximately 2 days ago. she has had difficulty ambulating as well as pain with sitting. She denies fevers chills history of instrumentation falls or trauma. [facility] Medical History Anxiety disorder Cervical cancer screening COVID-19 long hauler COVID-19 virus infection Diffuse lymphadenopathy Epigastric abdominal pain Hemorrhoids Hip pain, chronic History of COVID-19 IBS (irritable bowel syndrome) Iron deficiency anemia Lateral pain of right hip Left axillary fullness Left cervical lymphadenopathy Obesity (BMI 30.0-34.9) Post-COVID syndrome Pulmonary nodules/lesions, multiple Urticaria of unknown origin Vitamin B12 deficiency Vitamin D deficiency Surgical History History of tonsillectomy Hx of lymph node biopsy S/P Family History Father AIDS Substance use disorder Mother AIDS Substance use disorder Maternal Grandmother Alzheimer's disease Dementia HTN (hypertension) Diabetes mellitus Brother Substance use disorder Mental health disorder Son No problems noted. 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 No midline tenderness in the back. Able to bear weight. Physical Exam Vital Signs: Last Vital Signs Temp 97.6 F 11/26/22 08:11 Pulse 73 11/26/22 08:11 BP 126/70 11/26/22 08:11 Pulse Ox 100 11/26/22 08:11 BMI result Body Mass Index 31.6 Assessment & Plan Assessment & Plan (1) Hip pain: Code(s): M25.559 - Pain in unspecified hip (2) Right hip impingement syndrome: Code(s): M25.851 - Other specified joint disorders, right hip Plan Patient's signs and symptoms most consistent with trochanteric bursitis. Low suspicion for septic joint given no fever history of instrumentation or other systemic signs of illness. Low suspicion for fracture dislocation given no trauma. Will provide Toradol and prednisone for further orthopedics. Will order x-ray. Discharge instructions, follow up and treatment are discussed with patient in my usual fashion. Alternatives in treatment are also discussed. The patient will return for worsening symptoms or as needed. Advised that any labs/imaging ordered will be followed up on and contact made if further treatment needed. Counseled that patient's condition may require further evaluation and/or treatment. Symptoms of concern for worsening disorder discussed in detail in my customary manner. Patient does verbalize understanding of the plan, there are no apparent barriers to communication. The patient is given the opportunity to ask questions and have them answered to his/her satisfaction Orders: Orders XR hip RT min 2V Today M25.559 - Pain in unspecified hip Referrals Orthopedics Referral M25.851 - Other specified joint disorders, right hip Medications: New ketorolac 10 mg PO TID 5 days PRN 15 tabs 0RF pain prednisone 40 mg (2 x 20 mg) PO DAILY 3 days 6 tabs 0RF lidocaine 5% leave on most painful area for up to 12 hrs 1 patch topical DAILY 15 ea 0RF Coding Level of Care Code Est Pt Level 3 (29428) Diagnoses Hip pain M25.559 Right hip impingement syndrome M25.851
== END 2022-11-26 08:52 | disposition home or self-care (01) ==
PROVIDERS: PCP Internal Medicine; Visit Provider Physician Assistant
DX: M25.559 Pain in unspecified hip (principal); M25.851 Other specified joint disorders, right hip
CPT/HCPCS: 99213

== ENCOUNTER 2022-11-26 08:48 | Outpatient (REF) | payer BC, OTHER, SELFPAY ==
--- NOTE | ~2022-11-26 | XR_ITS ---
EXAMINATION: XR HIP, RIGHT CLINICAL INFORMATION: Right hip pain. COMPARISON: 11/06/2022 and 03/26/2021 TECHNIQUE: Two views of the right hip. FINDINGS: Alignment is anatomic. Hip joint space is maintained. No displaced fracture or dislocation. Hypertrophic changes/soft tissue calcifications identified along the greater trochanter. XR/XR hip RT min 2V IMPRESSION: No acute abnormality.
== END 2022-11-26 08:49 | disposition home or self-care (01) ==
LOC: HO.HMGCX 08:48
PROVIDERS: PCP Internal Medicine; Visit Provider Physician Assistant
DX: M25.551 Pain in right hip (principal)
CPT/HCPCS: 73502

== ENCOUNTER 2022-12-26 09:31 | Outpatient (REF) | payer BC, OTHER, SELFPAY | END 2022-12-26 09:32 | disposition home or self-care (01) | LOC: HO.MRI 09:31 | PROVIDERS: PCP Internal Medicine; Visit Provider Orthopaedic Surgery | DX: M25.851 Other specified joint disorders, right hip (principal) | CPT/HCPCS: 73721 ==

== ENCOUNTER 2023-01-21 08:27 | Outpatient (AMB) | payer BC, OTHER, SELFPAY ==
--- NOTE | 2023-01-21 08:30 | A.OFFVIS_ITS ---
Intake Intake Visit Reasons: OV - Right Hip MRI follow up Intake Note: Denisse is a 38 year old female who presents today for an MRI review of the right hip. She has been working with physical therapy, but reports that her pain has increased significantly making ambulation quite painful and difficult. [facility] She was giving Ketorlac and Prednisone which has improved her pain. Allergies morphine [MORPHINE] Allergy (Severe, Verified 11/26/22 08:18) VOMITING Opioids - Morphine Analogues Allergy (Mild, Verified 11/26/22 08:18) Vomiting HPI OV - Right Hip MRI follow up HPI Details Denisse is a 38 year old woman who returns for an MRI review of her right hip impingement. She says she is doing well now and her pain has improved. She is happy that she is able to walk now without pain She was seen at a walk-in clinic on 11/26/22 who suspected she had trochanteric bursitis. She was prescribed Toradol and a tapering Prednisone course, which she found helpful. She has completed several courses of PT, without much relief. [facility] Medical History Anxiety disorder Cervical cancer screening COVID-19 long hauler COVID-19 virus infection Diffuse lymphadenopathy Epigastric abdominal pain Hemorrhoids Hip pain, chronic History of COVID-19 IBS (irritable bowel syndrome) Iron deficiency anemia Lateral pain of right hip Left axillary fullness Left cervical lymphadenopathy Obesity (BMI 30.0-34.9) Post-COVID syndrome Pulmonary nodules/lesions, multiple Urticaria of unknown origin Vitamin B12 deficiency Vitamin D deficiency Surgical History History of tonsillectomy Hx of lymph node biopsy S/P Family History Father AIDS Substance use disorder Mother AIDS Substance use disorder Maternal Grandmother Alzheimer's disease Dementia HTN (hypertension) Diabetes mellitus Brother Substance use disorder Mental health disorder Son No problems noted. 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 Cognitive needs: No Hearing needs: No Vision needs: Yes Female Reproductive History Menstrual Age of Menarche: 11 Review of Systems Const All systems reviewed & are unremarkable except as noted in HPI and below Physical Exam Const General: no acute distress, alert and awake Orientation/consciousness: patient oriented x3 HEENT Head: Yes normocephalic and Yes atraumatic Eyes EOM: EOMs intact bilaterally Resp Effort & Inspection: normal respiratory effort and able to speak in complete sentences Cardio Jugular venous distension: no JVD Skin General skin exam: turgor normal Rashes: no rashes Neuro General: patient oriented x3 Extrem Other: Right Hip: No TTP Walking normally Psych Appearance: grossly normal Affect: normal affect Attitude: cooperative Results Reviewed Results Reviewed: I personally reviewed relevant MR images 1. Moderate gluteus minimus tendinosis with undersurface partial tearing measuring 3.4 cm in craniocaudal dimension. More mild gluteus medius tendinosis. 2. No acute osseous abnormality. No stress reaction, fracture, or avascular necrosis. Assessment & Plan Assessment & Plan (1) Right hip impingement syndrome: Code(s): M25.851 - Other specified joint disorders, right hip Plan: This is a 38 year old woman with right hip impingement. She has no complaints of pain today, and is happy that her symptoms have improved. She finished a course of PO Prednisone and Toradol, with good relief. I recommend she remain active as tolerated. No intervention warranted. She can follow up prn Plan Scribed for Adeel Medellin MD by Jevon Childers, biomedical analytical scientist, on 01/21/23 at 9:00 AM, EST. Coding Level of Care Code Est Pt Level 4 (07889) Diagnoses Right hip impingement syndrome M25.851
== END 2023-01-21 09:43 | disposition home or self-care (01) ==
PROVIDERS: PCP Internal Medicine; Visit Provider Orthopaedic Surgery
DX: M25.851 Other specified joint disorders, right hip (principal)
CPT/HCPCS: 99214

== ENCOUNTER → 2023-01-21 08:27 | Outpatient (BNVA) | payer BC, OTHER, SELFPAY | PROVIDERS: PCP Internal Medicine; Visit Provider Orthopaedic Surgery ==

== ENCOUNTER 2023-04-21 13:28 | Outpatient (AMB) | payer BC, MEDICAID, SELFPAY ==
--- NOTE | 2023-04-21 13:42 | MHC.PC.OV ---
Vital Signs 04/21/23 13:51 Height 5 ft 4 in Weight 197 lb BMI 33.8 BP 112/72 Blood Pressure Location Rt brachial Position Sitting Pulse 70 Pulse Source Pulse Oximeter Pulse Oximetry (%) 100 Oxygen Delivery Method Room Air Intake Visit Reasons: ongoing pain, chest and upper back Intake Note: Pt is here today c/o upper mid diaphram discomfort into upper back pain: 2 episodes in a week: at times discomfort starts after she eats Allergies morphine [MORPHINE] Allergy (Severe, Verified 04/21/23 14:03) VOMITING Opioids - Morphine Analogues Allergy (Mild, Verified 04/21/23 14:03) Vomiting Medication List - Last Reconciled 04/21/23 by Alison Martin MD lorazepam 0.5 mg PO DAILY PRN multivitamin 1 tab PO DAILY Tobacco use date assessed: 04/21/23 Dental Screening Dental Screen Date: 04/21/23 Did you have a dental visit in the last 12 months?: Yes Did you have a dental problem in the last 6 months where you did not have access to dental care?: No Was dental information given to patient?: Patient has dentist HPI ongoing pain, chest and upper back HPI Details 38-year-old lady here today complaining of epigastric discomfort, radiating to right side and 2 right upper back which has been present now for the last several days. This was aggravated by food intake, and accompanied by nausea but no vomiting . Denies any alteration in bowel movements, no melena or hematochezia reported. [facility] Medical History (Updated 04/21/23 @ 14:11 by Alison Martin MD) Epigastric abdominal pain Iron deficiency anemia Lateral pain of right hip Cervical cancer screening Left axillary fullness History of COVID-19 Hip pain, chronic Pulmonary nodules/lesions, multiple Hemorrhoids COVID-19 long hauler IBS (irritable bowel syndrome) Post-COVID syndrome Diffuse lymphadenopathy Urticaria of unknown origin Left cervical lymphadenopathy Vitamin D deficiency COVID-19 virus infection Obesity (BMI 30.0-34.9) Vitamin B12 deficiency Anxiety disorder Surgical History Hx of lymph node biopsy S/P History of tonsillectomy Family History Father AIDS Substance use disorder Mother AIDS Substance use disorder Maternal Grandmother Alzheimer's disease Dementia HTN (hypertension) Diabetes mellitus Brother Substance use disorder Mental health disorder Son No problems noted. 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 1. Little interest or pleasure in doing things: not at all 2. Feeling down, depressed, or hopeless: not at all 3. Trouble falling or staying asleep, or sleeping too much: not at all 4. Feeling tired or having little energy: not at all 5. Poor appetite or overeating: not at all 6. Feeling bad about yourself - or that you are a failure or have let yourself or your family down: not at all 7. Trouble concentrating on things, such as reading the newspaper or watching television: not at all 9. Thoughts that you would be better off or of hurting yourself in some way: not at all Depression Screening Interpretation: Negative Depression Screening Done: Yes 73575 - PHQ-9 Billing: Yes Source: Developed by Drs. Kendrick Mchugh, Medina Jolly, Alexander Shirley and colleagues, with an educational kacie from [employer]. Thrive Questionnaire Date Thrive assessed: 04/21/23 I am a: Patient What is your living situation today?: I have a steady place to live Within the past 12 months, did the food you bought not last and you didn't have the money to get more?: Never true Within the past 12 months, did you worry whether your food would run out before you got money to buy more?: Never true Do you have trouble paying for medicines?: No Do you have trouble getting transportation to medical appointments?: No Do you have trouble paying your heating and electricity bill?: No Do you have trouble taking care of your child, family member or friend?: No Do you have trouble with day-to-day activities such as bathing, preparing meals, shopping, managing finances, etc.?: No Are you currently unemployed and looking for a job?: No Are you interested in more education?: No THRIVE Score: 0 AUDIT C Alcohol Use Questionnaire (AUDIT-C) 1. How often do you have a drink containing alcohol?: Monthly or less 2. How many drinks containing alcohol do you have on a typical day when you are drinking?: 1 or 2 3. How often do you have six or more drinks on one occasion?: Never Total Score: 1 PAOLA-7 AMB Questionnaire PAOLA-7 Date PAOLA - 7 assessed: 04/21/23 Feeling nervous, anxious, or on edge: 0 = Not at all Not being able to stop or control worryin = Not at all Worrying too much about different things: 0 = Not at all Trouble relaxin = Not at all Being so restless that it is hard to sit still: 0 = Not at all Becoming easily annoyed or irritable: 0 = Not at all Feeling afraid as if something awful might happen: 0 = Not at all Total PAOLA-7 score (0-4 normal; 5-9 mild; 10-14 moderate; 15-21 severe): 0 Source: Developed by Drs. Kendrick Mchugh, Medina Jolly, Alexander Shirley and colleagues, with an educational kacie from [employer]. PAOLA-7 Assessment Billing PAOLA-7 Assessment Tool: PAOLA-7 Assessment 61953 Review of Systems Const All systems reviewed & are unremarkable except as noted in HPI and below Physical exam (Primary Care) Vital Signs: Last Vital Signs Pulse 70 04/21/23 13:51 BP 112/72 04/21/23 13:51 Pulse Ox 100 04/21/23 13:51 Oxygen Delivery Method Room Air 04/21/23 13:51 BMI result Body Mass Index 33.8 Tobacco/Smoking Status: Tobacco use Status Tobacco use date assessed 04/21/23 04/21/23 13:56 Patient Tobacco Use Status Former Tobacco user 04/21/23 13:42 e-Cigarette/Vaping Use Never Used 04/21/23 13:56 Depression Screening Interpretation: Negative Thrive Assessment: Date of Thrive Assessment Date Thrive assessed 04/21/23 04/21/23 13:57 Const Other: Alert oriented x3, no acute distress noted ambulatory normal gait. HENMT Mouth: Normal oral and palatal mucosa present, oropharynx normal and moist mucous membranes Eyes General: appearance normal, both eyes and all related structures Conjunctivae: conjunctivae normal Sclerae: sclerae normal Neck Neck: Yes normal visual inspection, Yes full ROM and Yes no lymphadenopathy Resp Auscultation: clear to auscultation bilaterally Cardio Other: S1-S2 present regular rate and rhythm GI Other: Slight tenderness on palpation over epigastric and right upper quadrant of abdomen, no rebound or guarding. Assessment and Plan Assessment & Plan (1) Epigastric abdominal pain: Code(s): R10.13 - Epigastric pain Plan: Comprehensive metabolic panel CBC with differential, lipase amylase and lipid panel ordered. Ultrasound of abdomen also ordered to rule out gallstones and upper GI series also ordered to check for any evidence of gastritis, or GERD. Empirically started on pantoprazole 40 mg per capsule to take once a day an hour before eating. Orders: Orders Comprehensive [place]. Panel Fast 04/22/23 D50.9 - Iron deficiency anemia, unspecified, R10.13 - Epigastric pain Complete Blood Count Auto Diff 04/22/23 D50.9 - Iron deficiency anemia, unspecified, R10.13 - Epigastric pain Lipase 04/22/23 D50.9 - Iron deficiency anemia, unspecified, R10.13 - Epigastric pain Lipid Panel 04/22/23 D50.9 - Iron deficiency anemia, unspecified, R10.13 - Epigastric pain Amylase 04/22/23 D50.9 - Iron deficiency anemia, unspecified, R10.13 - Epigastric pain US abdomen complete 04/21/23 R10.13 - Epigastric pain FL upper GI series 04/21/23 D50.9 - Iron deficiency anemia, unspecified, R10.13 - Epigastric pain Medications: New pantoprazole Take 1 hour before eating 40 mg PO DAILY 30 tabs 1RF Coding Level of Care Code Est Pt Level 3 (57686) Diagnoses Epigastric abdominal pain R10.13 Additional Codes PAOLA-7 Assessment Billing - PAOLA-7 Assessment Tool: PAOLA-7 Assessment [id number] ([id number])
[2023-04-21 13:51] VITALS: BP 112/72; PULSE 70; O2SAT 100; BMI 33.8
== END 2023-04-21 15:49 | disposition home or self-care (01) ==
PROVIDERS: PCP Internal Medicine; Visit Provider Internal Medicine
DX: R10.13 Epigastric pain (principal)
CPT/HCPCS: 99213

== ENCOUNTER 2023-04-22 09:12 | Outpatient (REF) | payer BC, SELFPAY ==
[2023-04-22 11:14] LABS: MANUAL DIFF FLAG NO
[2023-04-22 11:40] LABS: Basophils Absolute Auto 0.1 X10*3/uL (0.0-0.2); Basophils Percent Auto 0.6 % (0-2); Eosinophils Absolute Auto 0.4 X10*3/uL (0.0-0.4); Eosinophils Percent Auto 4.3 % (0-4); Hematocrit 35.5 % (37.0-47.0); Hemoglobin 11.3 g/dl (12.0-16.0); Imm Gran Abs Auto 0.03 X10*3/uL (0.00-0.03); Imm Gran Pct Auto 0.4 % (0.0-0.4); Lymphocytes Absolute Auto 2.7 X10*3/uL (1.2-4.9); Mean Corpuscular HGB Conc 31.8 g/dl (31.0-35.0); Mean Corpuscular Hemoglobin 24.6 pg (27.0-33.0); Mean Corpuscular Volume 77.2 fL (80.0-98.0); Mean Platelet Volume 9.9 fL (9.4-12.3); Monocytes Absolute Auto 0.6 X10*3/uL (0.1-1.2); Monocytes Percent Auto 6.5 % (2-11); Neutrophils Absolute Auto 4.7 x10*3/uL (2.0-8.3); Neutrophils Percent Auto 56.2 % (45-73); Platelet Count 532 X10*3/uL (160-400); Red Cell Distribution Width 14.6 % (11.0-16.0); White Blood Count 8.4 X10*3/uL (4.8-10.8)
[2023-04-22 11:50] LABS: Alanine Aminotransferase 15 U/L (0-31); Albumin Level 4.2 g/dL (3.5-5.0); Alkaline Phosphatase 69 U/L (39-117); Amylase 47 U/L (28-100); Anion Gap 13 (12-20); Aspartate Amino Transferase 16 U/L (5-31); Blood Urea Nitrogen 11 mg/dL (9-16); Calcium 9.5 mg/dL (8.4-10.2); Carbon Dioxide 26 mmol/L (22-29); Chloride 106 mmol/L (96-108); Cholesterol 144 mg/dL (<200); Estimated Glomerular Filt Rate > 60; Glucose Fasting 93 mg/dL (60-99); HDL Cholesterol 35 mg/dL (>40); LDL Cholesterol Calculated 77 mg/dL (<100); Lipase 20 U/L (8-78); Potassium 4.6 mmol/L (3.3-5.1); Sodium 140 mmol/L (135-145); Total Protein 7.2 g/dL (6.5-8.0); Triglycerides 162 mg/dL (<150)
== END 2023-04-22 09:13 | disposition home or self-care (01) ==
LOC: HO.HMGCLDS 09:12
PROVIDERS: PCP Internal Medicine; Visit Provider Internal Medicine
DX: R10.13 Epigastric pain (principal); D50.9 Iron deficiency anemia, unspecified
CPT/HCPCS: 36415; 80053; 80061; 82150; 83690; 85025

== ENCOUNTER 2023-06-17 08:23 | Outpatient (REF) | payer BC, SELFPAY ==
--- NOTE | ~2023-06-17 | FL_ITS ---
EXAMINATION: XR FLUOROSCOPY UPPER GI WITH AIR CLINICAL INFORMATION: Epigastric pain COMPARISON: None TECHNIQUE: Fluoroscopic air contrast upper GI examination was performed utilizing standard techniques with thin and thick barium and effervescent granules. Numerous spot images were obtained. FINDINGS: Dual and single contrast images of the esophagus demonstrate normal caliber, contour, and mucosal pattern. No evidence of stricture, mass, or ulcerations identified. Esophageal peristalsis was normal. No evidence of hiatus hernia identified. Gastroesophageal reflux is seen up to the midesophagus. Dual contrast and single contrast images of the stomach demonstrated a normal contour. There are multiple small areas of contrast pooling in the body of the stomach that may represent superficial aphthous ulcers. No masses are present. Mild thickening of the area gastricae. No definite rugal fold pattern thickening. Contrast freely passed into the gastric antrum and duodenal bulb without delay. Single and air-contrast images of the duodenal bulb demonstrate no abnormality. The duodenal sweep has a normal appearance, course, and mucosal fold appearance. No malrotation. The imaged proximal jejunum has a normal fold pattern and caliber. FLUOROSCOPY TIME: 2 minutes 53 seconds Number of Spot Images: 9 Number of Cine: 8 DOSE AREA PRODUCT: 1919 uGy-m2 (microgray-meter squared) FL/FL upper GI w air IMPRESSION: 1. Mild to moderate gastroesophageal reflux. 2. Multiple small areas of contrast pooling in the body the stomach that may represent superficial submucosal aphthous ulcers. Mild thickening of the mucosal areae gastricae. Findings suggest erosive gastritis. Recommend correlation with EGD. 3. No evidence of hiatus hernia. This procedure was performed by Artem Tang PA-C, and supervised by Dr. Mcintyre
== END 2023-06-17 08:24 | disposition home or self-care (01) ==
LOC: HO.XRAY 08:23
PROVIDERS: PCP Internal Medicine; Visit Provider Internal Medicine
DX: R10.13 Epigastric pain (principal); D50.9 Iron deficiency anemia, unspecified
CPT/HCPCS: 74246

== ENCOUNTER → 2023-06-17 08:25 | Outpatient (BNV) | payer BC, SELFPAY | PROVIDERS: PCP Internal Medicine; Visit Provider Physician Assistant Surgical | DX: R10.13 Epigastric pain (principal) | CPT/HCPCS: 74246 ==

== ENCOUNTER 2023-07-12 14:38 | Outpatient (AMB) | payer BC, MEDICAID, SELFPAY ==
--- NOTE | 2023-07-12 14:41 | MHC.OFFWIV ---
Intake Vital Signs 07/12/23 14:44 Height 5 ft 4 in BP 110/70 Blood Pressure Location Rt brachial Position Sitting Pulse 72 Pulse Source Pulse Oximeter Temp 98.2 F Temp Source Oral Pulse Oximetry (%) 100 Intake Visit Reasons: EP dizziness, lightheadedness,anemia Intake Note: pt is here for dizziness, lightheadedness, patient just had cholescyectomy at [facility] 3 weeks ago and just started experiencing these symptoms unsure if it related. Patient Tobacco Use Status: Former Tobacco user Allergies morphine [MORPHINE] Allergy (Severe, Verified 07/12/23 14:44) VOMITING Opioids - Morphine Analogues Allergy (Mild, Verified 07/12/23 14:44) Vomiting Do you need a note to return to daycare/school/sports/work: No HPI EP dizziness, lightheadedness,anemia HPI Details 38 yr old female presents to the office for a sick visit. Reports sx of fatigue and dizziness. History of anemia. Her menstrual cycles are heavy. Cold intolerance present. 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 Cognitive needs: No Hearing needs: No Vision needs: Yes Female Reproductive History Menstrual Age of Menarche: 11 Physical Exam Vital Signs: Last Vital Signs Temp 98.2 F 07/12/23 14:44 Pulse 72 07/12/23 14:44 BP 110/70 07/12/23 14:44 Pulse Ox 100 07/12/23 14:44 Const General: cooperative and healthy appearing Nutritional Appearance: well nourished Orientation/consciousness: patient oriented x3 Limitations: no limitations HEENT Head: Yes normal to inspection Eyes General: appearance normal, both eyes and all related structures Neck Neck: Yes normal visual inspection Chest Chest palpation & inspection: normal palpation of entire chest wall Resp Effort & Inspection: normal respiratory effort Neuro General: patient oriented x3 Results Reviewed Results Reviewed: CBC done in the last OV, Hgb was 11.3 Assessment & Plan Assessment & Plan (1) Iron deficiency anemia: Code(s): D50.9 - Iron deficiency anemia, unspecified Qualifiers: Iron deficiency anemia type: unspecified iron deficiency Qualified Code(s): D50.9 - Iron deficiency anemia, unspecified Plan: Sx of dizziness could represent her underlying iron deficiency anemia. BW has been ordered again. Iron treatment initiated. Explained to patient to follow up with Dr Martin for furhter work up. Pt understanding. Orders: Orders Basic Metabolic Panel Today D50.9 - Iron deficiency anemia, unspecified Lipid Panel Today D50.9 - Iron deficiency anemia, unspecified Erythrocyte Sedimentation Rate Today D50.9 - Iron deficiency anemia, unspecified Complete Blood Count no Diff Today D50.9 - Iron deficiency anemia, unspecified Liver Panel Today D50.9 - Iron deficiency anemia, unspecified Thyroid Stimulating Hormone Today D50.9 - Iron deficiency anemia, unspecified UA and rflx microscopic Today D50.9 - Iron deficiency anemia, unspecified Medications: New ferrous sulfate (Feosol) 325 mg PO DAILY 30 tabs 0RF Coding Level of Care Code Est Pt Level 4 (91550) Diagnoses Iron deficiency anemia, unspecified iron deficiency anemia type D50.9 Iron deficiency anemia type: unspecified iron deficiency
[2023-07-12 14:44] VITALS: BP 110/70; PULSE 72; TEMP 36.8; O2SAT 100
== END 2023-07-12 15:20 | disposition home or self-care (01) ==
PROVIDERS: PCP Internal Medicine; Visit Provider Internal Medicine
DX: D50.9 Iron deficiency anemia, unspecified (principal)
CPT/HCPCS: 99214

== ENCOUNTER 2023-07-12 15:06 | Outpatient (REF) | payer BC, MEDICAID, SELFPAY ==
[2023-07-12 16:17] LABS: Appearance Urine Cloudy; Color Urine Yellow; Glucose Urine UA Negative (Negative); Leukocyte Esterase Urine Negative (Negative); Nitrite Urine Negative (Negative); PH 5.5 (5.0-9.0); Urine Blood Negative (Negative); Urine Ketones Negative (Negative); Urine Protein Negative (Neg-Trace)
[2023-07-12 16:19] LABS: Hematocrit 34.5 % (37.0-47.0); Hemoglobin 10.8 g/dl (12.0-16.0); Mean Corpuscular HGB Conc 31.3 g/dl (31.0-35.0); Mean Corpuscular Volume 76.7 fL (80.0-98.0); Mean Platelet Volume 10.8 fL (9.4-12.3); Platelet Count 563 X10*3/uL (160-400); Red Cell Distribution Width 15.9 % (11.0-16.0); White Blood Count 6.2 X10*3/uL (4.8-10.8)
[2023-07-12 16:43] LABS: Alanine Aminotransferase 23 U/L (0-31); Albumin Level 4.4 g/dL (3.5-5.0); Alkaline Phosphatase 64 U/L (39-117); Anion Gap 12 (12-20); Aspartate Amino Transferase 19 U/L (5-31); Bilirubin Direct 0.3 mg/dL (0.0-0.5); Bilirubin Total 1.2 mg/dL (0.0-1.0); Blood Urea Nitrogen 7 mg/dL (9-16); Calcium 9.5 mg/dL (8.4-10.2); Carbon Dioxide 25 mmol/L (22-29); Chloride 107 mmol/L (96-108); Cholesterol 156 mg/dL (<200); Estimated Glomerular Filt Rate > 60; Glucose Random 97 mg/dL (60-115); HDL Cholesterol 32 mg/dL (>40); LDL Cholesterol Calculated 94 mg/dL (<100); Potassium 3.7 mmol/L (3.3-5.1); Sodium 140 mmol/L (135-145); Total Protein 7.6 g/dL (6.5-8.0); Triglycerides 154 mg/dL (<150)
[2023-07-12 16:59] LABS: Thyroid Stimulating Hormone 1.56 uIU/mL (0.32-4.0)
[2023-07-12 17:21] LABS: Erythrocyte Sedimentation Rate 10 MM/HR (0-20)
== END 2023-07-12 15:07 | disposition home or self-care (01) ==
LOC: HO.HMGCLDS 15:06
PROVIDERS: PCP Internal Medicine; Visit Provider Internal Medicine
DX: Z13.6 Encounter for screening for cardiovascular disorders (principal); D50.9 Iron deficiency anemia, unspecified
CPT/HCPCS: 36415; 80048; 80061; 80076; 81003; 84443; 85027; 85652

== ENCOUNTER 2023-09-21 09:53 | Outpatient (REF) | payer BC, MEDICAID, SELFPAY ==
[2023-09-22 02:30] LABS: CT PCR NOT DETECTED (Not Detect.); NG PCR NOT DETECTED (Not Detect.)
[2023-09-22 08:52] LABS: Bacterial Vaginosis PCR NEGATIVE (Negative); Candida Group PCR DETECTED (Not Detect); Candida glab krusei PCR NOT DETECTED (Not Detect); Trichomonas vaginalis PCR NOT DETECTED (Not Detect)
== END 2023-09-21 09:54 | disposition home or self-care (01) ==
LOC: HO.LAB 09:53
PROVIDERS: PCP Internal Medicine; Visit Provider Advanced Practice Midwife
DX: E28.2 Polycystic ovarian syndrome (principal); N89.8 Other specified noninflammatory disorders of vagina; N92.0 Excessive and frequent menstruation with regular cycle; Z20.2 Contact with and (suspected) exposure to infections with a predominantly sexual mode of transmission
CPT/HCPCS: 0352U; 87491; 87591

== ENCOUNTER 2023-09-21 09:53 | Outpatient (AMB) | payer BC, MEDICAID, SELFPAY ==
[2023-09-21 10:06] VITALS: BP 118/70; BMI 29.3
--- NOTE | 2023-09-21 10:06 | A.OFFVIS_ITS ---
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 Civil Structural Designer Required: No Civil Structural Designer Services: Civil Structural Designer Present Information Interpreted: clinical only Kiln Worker: Kiln Worker Present Allergies morphine [MORPHINE] Allergy (Severe, Verified 09/21/23 10:14) VOMITING Opioids - Morphine Analogues Allergy (Mild, Verified 09/21/23 10:14) Vomiting Medication List - Last Reconciled 09/21/23 by Nabila Garcia CNM ferrous sulfate (Feosol) 325 mg PO DAILY lorazepam 0.5 mg PO DAILY PRN Is last menstrual period known: Yes Last menstrual period: 08/28/23 Do you need a note to return to daycare/school/sports/work: No HPI HPI 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 she would like get checked for STDs the had questions about perimenopause and we discussed other methods of control today too, [facility] Medical History (Updated 09/21/23 @ 10:57 by Nabila Garcia CNM) Cervical cancer screening Cholelithiasis Epigastric abdominal pain Iron deficiency anemia Lateral pain of right hip Left axillary fullness History of COVID-19 Hip pain, chronic Pulmonary nodules/lesions, multiple Hemorrhoids COVID-19 long hauler IBS (irritable bowel syndrome) Post-COVID syndrome Diffuse lymphadenopathy Urticaria of unknown origin Left cervical lymphadenopathy Vitamin D deficiency COVID-19 virus infection Obesity (BMI 30.0-34.9) Vitamin B12 deficiency Anxiety disorder Surgical History Hx of lymph node biopsy S/P History of tonsillectomy Family History Father AIDS Substance use disorder Mother AIDS Substance use disorder Maternal Grandmother Alzheimer's disease Dementia HTN (hypertension) Diabetes mellitus Brother Substance use disorder Mental health disorder Son No problems noted. 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 previous pap ,2018 WNL) History of abnormal pap smear: No Physical Exam Vital Signs: Last Vital Signs BP 118/70 09/21/23 10:06 BMI result Body Mass Index 29.3 Const General: healthy appearing, comfortable, no acute distress, well developed and alert Nutritional Appearance: average body habitus Orientation/consciousness: patient oriented x3 Limitations: no limitations HEENT Head: Yes normocephalic Neck Neck: Yes normal visual inspection Chest Chest palpation & inspection: normal inspection of the chest Breast/axilla inspection: normal inspection of the breasts and normal inspection of the axillae Breast/axilla palpation: normal palpation of the breasts and normal palpation of the axillae Resp Effort & Inspection: normal respiratory effort GI Inspection: Yes normal to inspection, No Abdominal wall edema and No distended Palpation (GI): Soft to palpation and nontender Other: External exam within normal limits vagina pink and moist very normal appearing scant whitish discharge cervix nulliparous pink smooth mobile nontender. Uterus is small retroverted mobile nontender adnexa nontender very good tone with Kegel. General: Yes bladder normal to palpation External Female Exam: normal external appearance and normal appearance of the urethra Speculum Exam - Vagina: normal appearance of the vagina, normal palpation and normal vaginal discharge Speculum Exam - Cervix: normal appearance of the cervix, normal palpation and nontender Bimanual exam- vagina & uterus: normal bimanual exam, normal palpation, uterine size normal, bladder normal to palpation, consistency normal, normal palpation, uterine mobility normal, uterine shape normal, No Cervical tenderness present, non-tender and no cervical motion tenderness Bimanual Exam- Adnexa, other: normal adnexae, no masses, normal and No adnexal tenderness Neuro General: patient oriented x3 Assessment & Plan Assessment & Plan (1) PCOS (polycystic ovarian syndrome): Code(s): E28.2 - Polycystic ovarian syndrome Category: Medical (2) Menorrhagia: Code(s): N92.0 - Excessive and frequent menstruation with regular cycle Category: Medical (3) Cervical cancer screening: Comment: / pap= neg w neg hpv Code(s): Z12.4 - Encounter for screening for malignant neoplasm of cervix Category: Medical (4) Encounter for screening examination for sexually transmitted disease: Code(s): Z11.3 - Encounter for screening for infections with a predominantly sexual mode of transmission Category: Medical (5) control counseling: Code(s): Z30.09 - Encounter for other general counseling and advice on contraception Category: Medical Plan -----Discussed in this visit the following: healthy balanced diet, regular and consistent exercise, getting recommended health screens, doing the best she can for her particular health concerns, kegel exercises, pap smear screening and followup recommendations, mammography screening and SBE, normal changes in cycles in her life stage--- She has used Depo-Provera couple of times in her life and did not like how it made her feel and she is used ParaGard IUD but it made her periods very heavy. She is also used fertility awareness but had sex when she thought she was ovulating and got . She is currently using condoms except when she used pull out and then she is plan B if she got she terminate. She is going to try to be better about use of condoms .-I reviewed with the patient, all of the currently common used methods of control that are available. We reviewed how they work in the body, how they are taken, common side effects, uncommon side effects, precautions, and contraindications. -Discussed also factors that influence their effectiveness and use, and womens satisfaction with the method. -Discussed how each are used, and drawbacks of each method as well. -Methods covered included: condoms, control pills, control patches, control rings, Depo-Provera, Nexplanon, Mirena and Kyleena IUDs, and ParaGard IUDs. All of the above methods were covered in great detail including their side effect profiles and common experiences that women have and ways to mitigate against the negative experiences including attention to diet and exercise patient's with bleeding challenges that may occur her and efforts to time the initiation of the method to this start of the menstrual period. Orders: Orders Hepatitis B Surface Antigen Today E28.2 - Polycystic ovarian syndrome, N92.0 - Excessive and frequent menstruation with regular cycle, Z11.3 - Encounter for screening for infections with a predominantly sexual mode of transmission, Z12.4 - Encounter for screening for malignant neoplasm of cervix Hepatitis C Antibody Today E28.2 - Polycystic ovarian syndrome, N92.0 - Excessive and frequent menstruation with regular cycle, Z11.3 - Encounter for screening for infections with a predominantly sexual mode of transmission, Z12.4 - Encounter for screening for malignant neoplasm of cervix HIV Ab/Ag Today E28.2 - Polycystic ovarian syndrome, N92.0 - Excessive and frequent menstruation with regular cycle, Z11.3 - Encounter for screening for infections with a predominantly sexual mode of transmission, Z12.4 - Encounter for screening for malignant neoplasm of cervix Syphilis Screen Today E28.2 - Polycystic ovarian syndrome, N92.0 - Excessive and frequent menstruation with regular cycle, Z11.3 - Encounter for screening for infections with a predominantly sexual mode of transmission, Z12.4 - Encounter for screening for malignant neoplasm of cervix MM tomosynthesis screening BI Today Z12.31 - Encounter for screening mammogram for malignant neoplasm of breast Coding Level of Care Code Est Pt Prev Care 40-64y(43343) Diagnoses PCOS (polycystic ovarian syndrome) E28.2 Menorrhagia N92.0 Cervical cancer screening Z12.4 Encounter for screening examination for sexually transmitted disease Z11.3 control counseling Z30.09
== END 2023-09-21 11:08 | disposition home or self-care (01) ==
LOC: HO.HWS 09:53
PROVIDERS: PCP Internal Medicine; Visit Provider Advanced Practice Midwife
DX: Z01.419 Encounter for gynecological examination (general) (routine) without abnormal findings (principal); N92.0 Excessive and frequent menstruation with regular cycle; E28.2 Polycystic ovarian syndrome
CPT/HCPCS: 99396

== ENCOUNTER 2023-09-28 08:38 | Outpatient (REF) | payer BC, MEDICAID, SELFPAY ==
[2023-09-28 10:06] LABS: MANUAL DIFF FLAG NO
[2023-09-28 10:22] LABS: Basophils Percent Auto 0.6 % (0-2); Eosinophils Absolute Auto 0.2 X10*3/uL (0.0-0.4); Eosinophils Percent Auto 2.6 % (0-4); Hematocrit 33.1 % (37.0-47.0); Hemoglobin 10.5 g/dl (12.0-16.0); Imm Gran Abs Auto 0.02 X10*3/uL (0.00-0.03); Imm Gran Pct Auto 0.3 % (0.0-0.4); Lymphocytes Absolute Auto 2.6 X10*3/uL (1.2-4.9); Lymphocytes Percent Auto 38.5 % (20-40); Mean Corpuscular HGB Conc 31.7 g/dl (31.0-35.0); Mean Corpuscular Hemoglobin 26.1 pg (27.0-33.0); Mean Corpuscular Volume 82.3 fL (80.0-98.0); Mean Platelet Volume 10.1 fL (9.4-12.3); Monocytes Absolute Auto 0.4 X10*3/uL (0.1-1.2); Monocytes Percent Auto 5.6 % (2-11); Neutrophils Absolute Auto 3.6 x10*3/uL (2.0-8.3); Neutrophils Percent Auto 52.4 % (45-73); Platelet Count 416 X10*3/uL (160-400); Red Blood Count 4.02 X10*6/uL (4.20-5.50); Red Cell Distribution Width 15.9 % (11.0-16.0); White Blood Count 6.8 X10*3/uL (4.8-10.8)
[2023-09-28 11:02] LABS: Iron 33 mcg/dL (30-160); Percent Iron Saturation 8 % (15-50); Total Iron Binding Capacity 410 mcg/dL (228-428); Unsaturated Iron Binding 377 ug/dL
[2023-09-28 11:22] LABS: Syphilis Screen Nonreactive (Nonreactive)
[2023-09-28 11:23] LABS: HBsAGNum1 0.35 S/CO (0.00-0.99); HIV AB/AG Nonreactive (Nonreactive); HIV Num 1 0.05 S/CO (0.00-0.99); Hepatitis B Surface Antigen Negative (Negative); ~HepC Num1 0.12 S/CO (0.00-0.79); ~Hepatitis C Antibody Nonreactive (Nonreactive)
== END 2023-09-28 08:39 | disposition home or self-care (01) ==
LOC: HO.HMGCLDS 08:38
PROVIDERS: PCP Internal Medicine; Referring Provider Advanced Practice Midwife; Visit Provider Internal Medicine
DX: D50.9 Iron deficiency anemia, unspecified (principal); N92.0 Excessive and frequent menstruation with regular cycle; E28.2 Polycystic ovarian syndrome; Z11.3 Encounter for screening for infections with a predominantly sexual mode of transmission; Z12.4 Encounter for screening for malignant neoplasm of cervix
CPT/HCPCS: 36415; 83540; 85025; 86780; 86803; 87340; 87389

== ENCOUNTER 2023-10-13 08:02 | Outpatient (AMB) | payer BC, MEDICAID, SELFPAY ==
[2023-10-13 08:15] VITALS: BP 122/80; PULSE 73; O2SAT 99; BMI 29.2
--- NOTE | 2023-10-13 08:15 | MHC.OFFWIV ---
Intake Vital Signs 10/13/23 08:15 Height 5 ft 4 in Weight 170 lb 6 oz BMI 29.2 BP 122/80 Blood Pressure Location Lt brachial Position Sitting Pulse 73 Pulse Source Pulse Oximeter Pulse Oximetry (%) 99 Oxygen Delivery Method Room Air Intake Visit Reasons: EP ?Yeast infection Patient Tobacco Use Status: Former Tobacco user Allergies morphine [MORPHINE] Allergy (Severe, Verified 10/13/23 08:28) VOMITING Opioids - Morphine Analogues Allergy (Mild, Verified 10/13/23 08:28) Vomiting Do you need a note to return to daycare/school/sports/work: No HPI HPI Comments History of Present Illness Details Patient is a 38-year-old female complaining of recurrent bacterial vaginosis. She states she [facility] with bacterial vaginosis 1 month ago. She did the gel insert for 5 days and it seemed to have cleared up but she feels like it is back. She states she has foul-smelling discharge, some burning and discomfort. She denies any fevers. Patient states the other urgent care told her that the antibiotics are really hard on her stomach so she should do the gel treatment. ON LICENSE OF [facility] Medical History (Updated 10/13/23 @ 08:22 by Chitra Schultz PA-C) Cervical cancer screening Cholelithiasis Epigastric abdominal pain Iron deficiency anemia Lateral pain of right hip Left axillary fullness History of COVID-19 Hip pain, chronic Pulmonary nodules/lesions, multiple Hemorrhoids COVID-19 long hauler IBS (irritable bowel syndrome) Post-COVID syndrome Diffuse lymphadenopathy Urticaria of unknown origin Left cervical lymphadenopathy Vitamin D deficiency COVID-19 virus infection Obesity (BMI 30.0-34.9) Vitamin B12 deficiency Anxiety disorder Surgical History Hx of lymph node biopsy S/P History of tonsillectomy Family History Father AIDS Substance use disorder Mother AIDS Substance use disorder Maternal Grandmother Alzheimer's disease Dementia HTN (hypertension) Diabetes mellitus Brother Substance use disorder Mental health disorder Son No problems noted. 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 Cognitive needs: No Hearing needs: No Vision needs: Yes Female Reproductive History Menstrual Age of Menarche: 11 Review of Systems Const All systems reviewed & are unremarkable except as noted in HPI and below Physical Exam Vital Signs: Last Vital Signs Pulse 73 10/13/23 08:15 BP 122/80 10/13/23 08:15 Pulse Ox 99 10/13/23 08:15 Oxygen Delivery Method Room Air 10/13/23 08:15 BMI result Body Mass Index 29.2 Const General: cooperative, healthy appearing, comfortable, no acute distress and well developed Orientation/consciousness: patient oriented x3 Limitations: no limitations HEENT Head: Yes normal to inspection Eyes General: appearance normal, both eyes and all related structures Neck Neck: Yes normal visual inspection and Yes full ROM Resp Effort & Inspection: normal respiratory effort and able to speak in complete sentences Skin General skin exam: no rashes or lesions noted Neuro General: patient oriented x3 Extrem General: Yes normal to inspection Assessment & Plan Assessment & Plan (1) Vaginal discharge: Code(s): N89.8 - Other specified noninflammatory disorders of vagina Plan: Had patient self swab, we will send for BV panel. Recommended we treat with metronidazole this time because clearly the gel did not clear the infection completely. Recommending abstaining from sexual intercourse until she is fully cleared from the disease, if she tests positive Plan See above Orders: Orders Bacterial Vaginosis Panel Today N89.8 - Other specified noninflammatory disorders of vagina Coding Level of Care Code Est Pt Level 3 (69058) Diagnoses Vaginal discharge N89.8
== END 2023-10-13 08:55 | disposition home or self-care (01) ==
PROVIDERS: PCP Internal Medicine; Visit Provider Physician Assistant
DX: N89.8 Other specified noninflammatory disorders of vagina (principal)
CPT/HCPCS: 99213

== ENCOUNTER 2023-10-13 08:24 | Outpatient (REF) | payer BC, MEDICAID, SELFPAY ==
[2023-10-13 13:32] LABS: Bacterial Vaginosis PCR NEGATIVE (Negative); Candida Group PCR DETECTED (Not Detect); Candida glab krusei PCR NOT DETECTED (Not Detect); Trichomonas vaginalis PCR NOT DETECTED (Not Detect)
== END 2023-10-13 08:25 | disposition home or self-care (01) ==
LOC: HO.LAB 08:24
PROVIDERS: Visit Provider Physician Assistant
DX: N89.8 Other specified noninflammatory disorders of vagina (principal)
CPT/HCPCS: 0352U

== ENCOUNTER 2023-11-12 08:09 | Outpatient (AMB) | payer BC, SELFPAY ==
--- NOTE | 2023-11-12 08:10 | AM.OFFWIN_ITS ---
Intake Vital Signs 11/12/23 08:11 Weight 175 lb BP 126/82 Blood Pressure Location Lt brachial Position Sitting Pulse 82 Pulse Source Pulse Oximeter Pulse Oximetry (%) 98 Oxygen Delivery Method Room Air Intake Visit Reasons: ep-? yeast infection Intake Note: Patient here for possible yeast infection. she states she has itchiness discharge which has been present for about 1 week. Patient Tobacco Use Status: Former Tobacco user Allergies morphine [MORPHINE] Allergy (Severe, Verified 11/12/23 08:13) VOMITING Opioids - Morphine Analogues Allergy (Mild, Verified 11/12/23 08:13) Vomiting Do you need a note to return to daycare/school/sports/work: No HPI HPI Comments History of Present Illness Details Patient is a 38-year-old female who states she just finished taking metronidazole for bacterial vaginosis but she has residual white chunky discharge from her vagina. She denies any urinary symptoms or burning with urination, blood in her urine, she denies any changes in her bowels or fevers. [facility] Medical History (Updated 11/12/23 @ 08:26 by Chitra Schultz PA-C) Cervical cancer screening Cholelithiasis Epigastric abdominal pain Iron deficiency anemia Lateral pain of right hip Left axillary fullness History of COVID-19 Hip pain, chronic Pulmonary nodules/lesions, multiple Hemorrhoids COVID-19 long hauler IBS (irritable bowel syndrome) Post-COVID syndrome Diffuse lymphadenopathy Urticaria of unknown origin Left cervical lymphadenopathy Vitamin D deficiency COVID-19 virus infection Obesity (BMI 30.0-34.9) Vitamin B12 deficiency Anxiety disorder Surgical History Hx of lymph node biopsy S/P History of tonsillectomy Family History Father AIDS Substance use disorder Mother AIDS Substance use disorder Maternal Grandmother Alzheimer's disease Dementia HTN (hypertension) Diabetes mellitus Brother Substance use disorder Mental health disorder Son No problems noted. 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 Cognitive needs: No Hearing needs: No Vision needs: Yes Female Reproductive History Menstrual Age of Menarche: 11 Review of Systems Const All systems reviewed & are unremarkable except as noted in HPI and below Physical Exam Vital Signs: Last Vital Signs Pulse 82 11/12/23 08:11 BP 126/82 11/12/23 08:11 Pulse Ox 98 11/12/23 08:11 Oxygen Delivery Method Room Air 11/12/23 08:11 Const General: cooperative, healthy appearing, comfortable, no acute distress and well developed Orientation/consciousness: patient oriented x3 Limitations: no limitations HEENT Head: Yes normal to inspection Ears: hearing grossly normal bilaterally General nose exam: Normal external nose present Face and sinus: Yes normal facial exam Eyes General: appearance normal, both eyes and all related structures Neck Neck: Yes normal visual inspection and Yes full ROM Resp Effort & Inspection: normal respiratory effort and able to speak in complete sentences Skin General skin exam: no rashes or lesions noted Neuro General: patient oriented x3 Extrem General: Yes normal to inspection Assessment & Plan Assessment & Plan (1) Yeast infection: Code(s): B37.9 - Candidiasis, unspecified Plan: Counseled patient on probiotics and daily yogurt with probiotics to try to control her vaginal pH because she has had recurrent issues with bacterial vaginosis and yeast infections. Plan See above Medications: New fluconazole may repeat second dose 72 hrs after first dose if symptoms persist 150 mg PO Q3D 2 tabs 0RF Coding Level of Care Code Est Pt Level 3 (73368) Diagnoses Yeast infection B37.9
[2023-11-12 08:11] VITALS: BP 126/82; PULSE 82; O2SAT 98
--- OUTSIDE RECORDS SUMMARY | 2023-11-14 00:17 | XMS_ITS | Continuity of Care Document ---
Author Organization [facility] Address [address] [place] [address]- Care Team Providers Care Salad Maker Name Role Phone Mario COOPER, Alison Cee Primary Care Physician Encounter [facility] Date(s): 09/03/23 - 10/03/23 [facility] [address] [place] [address]- Attending Physician: Elidia Thornton Admitting Physician: AdmElidia acevedo Referring Physician: Admtr, ArGreg Allergies, Adverse Reactions, Alerts Substance Reaction Severity Status amoxicillin rash Active morphine severe vomiting Active Medications Lorazepam 0 Refills, Maintenance, 04/30/20 9:31:00 EST, Partial fill upon patient request if the prescriptionis for a schedule II opioid drug. Start Date: 04/30/20 Status: Ordered PT/OT Equipment See Instructions, # 2 each, Maintenance, please assess and treat for LUE cording/lymphedema. S/p axillary excisonal benign lymph node excision, 05/09/20 12:49:00 EST, Supply Start Date: 05/09/20 Status: Ordered Vitamin B12 = 1,000 mcg, 0 Refills, Maintenance, 04/05/20 2:32:00 EST, Partial fill upon patient request if theprescription is for a schedule II opioid drug. Start Date: 04/05/20 Status: Ordered Vitamin C By Mouth, Daily, 0 Refills, Maintenance, 04/05/20 2:32:00 EST, Partial fill upon patient request ifthe prescription is for a schedule II opioid drug. Start Date: 04/05/20 Status: Ordered Vitamin D3 By Mouth, Daily, 0 Refills, Maintenance, 04/05/20 2:33:00 EST, Partial fill upon patient request ifthe prescription is for a schedule II opioid drug. Start Date: 1/15/21 Status: Ordered Social History Social History Type Response Smoking Status Never (less than 100 in lifetime) entered on: 04/04/20 Sex Patient Care team information Care Team Personnel Name: Mario COOPER , Alison Cee Position: Reference Physician Member Role: PCP Address: Address: [address] [place] [address]- Name: Juan HERNANDEZ, Jagdish Position: S RN Member Role: Primary Care Nurse Care Team Related Persons Name: LAURE CALDERON Address: home [address] [address] Name: ITZEL DOVE Address: home [address] [place] [address]
--- OUTSIDE RECORDS SUMMARY | 2023-11-14 00:17 | XMS_ITS | Continuity of Care Document ---
Author Organization [facility] ter Address [address] [place] [address]- Care Team Providers Care Chemical Technician Name Role Phone Mario COOPER, Alison Cee Primary Care Physician Encounter [facility] [place] Date(s): 04/04/20 - 04/11/[address] [address]- Encounter Diagnosis Lymphadenopathy(Final) - 04/04/20 Discharge Disposition: A-D/C Home Attending Physician: Marcelino Newsome MD Admitting Physician: Cliff Patino MD Referring Physician: Not on Staff, Referring MD Allergies, Adverse Reactions, Alerts Substance Reaction Severity Status amoxicillin Active morphine Active Medications LORazepam 1 mg oral tablet 1 tablet = 1 mg, By Mouth, 3 times a day, PRN Anxiety, for 7 days, # 24 tablet, 0 Refills, Acute 04/18/20 10:56:00 EST, 04/11/20 10:56:00 EST, Tablet, [id number], Partial fill upon patientrequest if the prescription is for a schedule II op... Start Date: 04/11/20 Stop Date: 04/18/20 Status: Ordered oxyCODONE 10 mg oral tablet 1 tablet = 10 mg, By Mouth, Every 4 hours, PRN as needed for pain, for 5 days, # 24 tablet, 0 Refills, Acute 04/16/20 10:59:00 EST, 04/11/20 10:59:00 EST, Tablet, [id number], Partial fill upon patient request if the prescription is for a sc... Start Date: 04/11/20 Stop Date: 04/16/20 Status: Ordered Tylenol 325 mg oral tablet 650 mg, Tablet, By Mouth, Every 6 hours, PRN for Temperature, Routine, 04/04/20 16:00:00 EST Start Date: 04/04/20 Stop Date: 04/11/20 Status: Discontinued Vitamin B12 = 1,000 mcg, 0 Refills, [...] opioid drug. Start Date: 04/05/20 Status: Ordered Results Orders for Microbiology Reports Name Date Blood Culture 04/07/20 Blood Culture #2 04/07/20 Blood Culture 04/04/20 Blood Culture #2 04/04/20 Microbiology Reports TEST:Blood Culture STATUS:Unauthenticated BODY SITE: SOURCE:Blood COLLECTED DATE/TIME:04/07/20 11:32 AM Blood Culture SPECIMEN DESCRIPTION : BLOOD RAC SPECIAL REQUESTS : NONE CULTURE : NO GROWTH 4 DAYS REPORT STATUS : PRELIMINARY REPORT TEST:Blood Culture, Second Order STATUS:Unauthenticated BODY SITE: SOURCE:Blood COLLECTED DATE/TIME:04/07/20 11:32 AM Blood Culture, Second Order SPECIMEN DESCRIPTION : BLOOD L HAND SPECIAL REQUESTS : NONE CULTURE : NO GROWTH 4 DAYS REPORT STATUS : PRELIMINARY REPORT TEST:Blood Culture, Second Order STATUS:Auth (Verified) BODY SITE: SOURCE:Blood COLLECTED DATE/TIME:04/04/20 2:20 PM Blood Culture, Second Order SPECIMEN DESCRIPTION : BLOOD NO SITE SPECIAL REQUESTS : NONE CULTURE : NO GROWTH 5 DAYS. REPORT STATUS : FINAL 04/09/2020 TEST:Blood Culture STATUS:Auth (Verified) BODY SITE: SOURCE:Blood COLLECTED DATE/TIME:04/04/20 1:40 PM Blood Culture SPECIMEN DESCRIPTION : BLOOD NO SITE SPECIAL REQUESTS : NONE CULTURE : NO GROWTH 5 DAYS. REPORT STATUS : FINAL 04/09/2020 Radiology Reports * Exam Date Time Procedure Performing Provider Status 04/04/20 1:57 PM Chest 2 Views Frontal and Lat Greta Willingham; Auth (Verified) Notes: (Chest 2 Views Frontal and Lat) Reason For Exam: Shortness of Breath, Fever;Other: RESULT: Chest 2 Views Frontal and Lat Chest 2 Views Frontal and Lat Hx of Present Illness: Covid + in january c o pain all over her body since Wednesday COMPARISON: 02/16/10 FINDINGS: LINES AND TUBES: None. LUNGS AND PLEURA: Clear lungs. Normal pulmonary vascularity. No pleural effusion. No pneumothorax. HEART, MEDIASTINUM AND FRANK: Heart is normal in size. Normal upper mediastinal and hilar contour. BONES AND SOFT TISSUES: No acute abnormality. IMPRESSION: No acute abnormality. WSN: [id number] Ordering Physician: Andie Chatman Dictated By: Eliezer Nieto MD Dictated Date/Time: 04/04/20 1:59 pm Reviewed By: Eliezer Nieto MD Signed By: Eliezer Nieto MD Signed Date/Time: 04/04/20 1:59 pm Transcribed By: ERIK Transcribed Date/Time: 04/04/20 1:58 pm Vital Signs Most recent to oldest [Reference Range]: 1 2 3 Height 163 cm (04/11/20 11:02 AM) 163 cm (04/11/20 7:33 AM) 163 cm (04/11/20 5:05 AM) Weight 81.1 kg (04/07/20 4:35 PM) 84.4 kg (04/05/20 2:19 AM) 84.4 kg (04/05/20 2:08 AM) Oxygen Saturation [94-100 %] 100 % (04/11/20 11:02 AM) 100 % (04/11/20 7:33 AM) 100 % (04/10/20 8:52 PM) Pulse Rate [55-90 bpm] 97 bpm *H* (04/11/20 11:02 AM) 92 bpm *H* (04/11/20 7:33 AM) 84 bpm (04/10/20 8:52 PM) Body Mass Index [18.5-24.99] 31.77 *>HHI* (04/05/20 2:19 AM) Blood Pressure [90-138/55-84 mm Hg] 110/70mm Hg (04/11/20 11:02 AM) 111/57mm Hg (04/11/20 7:33 AM) 124/64mm Hg (04/10/20 8:52 PM) Respiratory Rate [16-30 br/min] 18 br/min (04/11/20 11:02 AM) 18 br/min (04/11/20 7:33 AM) 18 br/min (04/11/20 12:05 AM) Temperature [96.8-100.4 DegF] 99.3 DegF (04/11/20 11:02 AM) 98.8 DegF (04/11/20 7:33 AM) 98.6 DegF (04/11/20 5:05 AM) Mode of Delivery (Oxygen) Room air (04/11/20 11:02 AM) Room air (04/11/20 7:33 AM) Room air (04/10/20 8:52 PM) Blood pressure sites Arm, right (04/11/20 11:02 AM) Arm, right (04/11/20 7:33 AM) Arm, right (04/10/20 8:52 PM) Temperature Route Oral (04/11/20 11:02 AM) Oral (04/11/20 7:33 AM) Oral (04/11/20 5:05 AM) Dry Weight 84.4 kg (04/05/20 2:19 AM) Weight Obtained Via Standing scale (04/07/20 4:35 PM) Bed scale (04/05/20 2:19 AM) Bed scale (04/05/20 2:08 AM) Dry Weight Obtained Via Bed scale (04/05/20 2:19 AM) Social History Social History Type Response Smoking Status Never (less than 100 in lifetime) entered on: 04/04/20 Sex
--- OUTSIDE RECORDS SUMMARY | 2023-11-14 00:17 | XMS_ITS | Continuity of Care Document ---
Author Organization [facility] ter Address [address] [place] [address]- Care Team Providers Care Combination Saw Operator Name Role Phone Mario COOPER, Alison Cee Primary Care Physician Encounter [facility] [place] Date(s): 04/19/20 - 04/19/[address] [address] Discharge Disposition: A-D/C Home Attending Physician: Ramon Stevens MD Admitting Physician: Ramon Stevens MD Referring Physician: Ramon Stevens MD Allergies, Adverse Reactions, Alerts Substance Reaction Severity Status amoxicillin rash Active morphine severe vomiting Active Medications oxyCODONE 5 mg oral tablet 5 mg, 1, tablet, By Mouth, Every 6 hours, PRN, # 5 tablet, Refills 0, Tot. Refills 0, Acute 04/26/20 10:08:00 EST, for pain, 04/19/20 10:08:00 EST, Route to Pharmacy Electronically, [id number], Partial fill upon patient request if the presc... Start Date: 04/19/20 Stop Date: 04/26/20 Status: Ordered Vitamin B12 = 1,000 mcg, [...] opioid drug. Start Date: 04/05/20 Status: Ordered Vital Signs Most recent to oldest [Reference Range]: 1 2 3 Height 162.56 cm (04/19/20 8:05 AM) 162.56 cm (04/17/20 3:35 PM) Weight 78 kg (04/19/20 8:05 AM) 84.55 kg (04/17/20 3:35 PM) Oxygen Saturation [94-100 %] 98 % (04/19/20 11:30 AM) 98 % (04/19/20 11:15 AM) 99 % (04/19/20 11:00 AM) Pulse Rate [55-90 bpm] 85 bpm (04/19/20 8:05 AM) Body Mass Index [18.5-24.99] 29.52 *H* (04/19/20 8:05 AM) 32 *>HHI* (04/17/20 3:35 PM) Blood Pressure [90-138/55-84 mm Hg] 140/73mm Hg *H* (04/19/20 11:30 AM) 140/74mm Hg *H* (04/19/20 11:15 AM) 142/82mm Hg *H* (04/19/20 11:00 AM) Respiratory Rate [16-30 br/min] 20 br/min (04/19/20 11:30 AM) 13 br/min *L* (04/19/20 11:15 AM) 15 br/min *L* (04/19/20 11:00 AM) Temperature [96.8-100.4 DegF] 97.7 DegF (04/19/20 11:30 AM) 98.4 DegF (04/19/20 10:00 AM) 98.0 DegF (04/19/20 8:05 AM) Liters per Minute 4 L/min (04/19/20 10:30 AM) 5 L/min (04/19/20 10:15 AM) 5 L/min (04/19/20 10:00 AM) Mode of Delivery (Oxygen) Room air (04/19/20 2:15 PM) Room air (04/19/20 11:30 AM) Room air (04/19/20 11:15 AM) Blood pressure sites Leg, right (04/19/20 11:30 AM) Leg, right (04/19/20 11:15 AM) Leg, right (04/19/20 11:00 AM) Temperature Route Temporal (04/19/20 10:00 AM) Temporal (04/19/20 8:05 AM) Dry Weight 78 kg (04/19/20 8:05 AM) 84.55 kg (04/17/20 3:35 PM) Weight Obtained Via Standing scale (04/19/20 8:05 AM) Patient/family stated (04/17/20 3:35 PM) Dry Weight Obtained Via Standing scale (04/19/20 8:05 AM) Patient/family stated (04/17/20 3:35 PM) Social History Social History Type Response Smoking Status Never (less than 100 in lifetime) entered on: 04/04/20 Sex
--- OUTSIDE RECORDS SUMMARY | 2023-11-14 00:17 | XMS_ITS | Continuity of Care Document ---
Author Organization [facility] Address [address] [place] [address]- Care Team Providers Care Film Processing Supervisor Name Role Phone Mario COOPER, Alison Cee Primary Care Physician Encounter [facility] [place] Date(s): 05/06/20 - 05/06/[address] [address]- Discharge Disposition: A-D/C Walkout Attending Physician: Not on Staff, Attending MD Admitting Physician: Not on Staff, Admitting MD Referring Physician: Not on Staff, Referring MD Allergies, Adverse Reactions, Alerts Substance Reaction Severity Status amoxicillin rash Active morphine severe vomiting Active Medications Lorazepam 0 Refills, Maintenance, 04/30/20 9:31:00 EST, Partial fill upon patient request if the prescriptionis for a schedule II opioid drug. Start Date: 04/30/20 Status: Ordered Vitamin B12 = 1,000 mcg, [...] Most recent to oldest [Reference Range]: 1 Oxygen Saturation [94-100 %] 98 % (05/06/20 7:42 PM) Pulse Rate [55-90 bpm] 91 bpm *H* (05/06/20 7:42 PM) Blood Pressure [90-138/55-84 mm Hg] 139/ 74mm Hg *H* (05/06/20 7:42 PM) Respiratory Rate [16-30 br/min] 18 br/mi n (05/06/20 7:42 PM) Temperature [96.8-100.4 DegF] 98.2 DegF (05/06/20 7:42 PM) Mode of Delivery (Oxygen) Room air (05/06/20 7:42 PM) Blood pressure sites Arm, right (05/06/20 7:42 PM) Temperature Route Oral (05/06/20 7:42 PM) Social History Social History Type Response Smoking Status Never (less than 100 in lifetime) entered on: 04/04/20 Sex
--- OUTSIDE RECORDS SUMMARY | 2023-11-14 00:17 | XMS_ITS | Continuity of Care Document ---
Author Organization [facility] Address [address] [place] [address]- Care Team Providers Care Product Safety Consultant Name Role Phone Mario COOPER, Alison Cee Primary Care Physician [place] [facility] [place] 09/03/23 - 09/10/23 [facility] [address] [place] [address]- Encounter Diagnosis Vaginitis(Discharge Diagnosis) - 09/03/23 Attending Physician: Dari Morales MD Referring Physician: Alison Martin MD Allergies, Adverse Reactions, Alerts Substance Reaction [...] opioid drug. Start Date: 04/05/20 Status: Ordered Problem List Diagnosis Diagnosis Type Effective Dates Health Status Clini balwinder Service Informant Vaginitis Discharge Diagnosis 09/03/23 Vital Signs Most recent to oldest [Reference Range]: 1 Height 162.56 cm (09/03/23 10:54 AM) Oxygen Saturation [94-100 %] 100 % (09/03/23 10:54 AM) Pulse Rate [55-90 bpm] 71 bpm (09/03/23 10:54 AM) Blood Pressure [90-138/55-84 mm Hg] 120/ 70mm Hg (09/03/23 10:54 AM) Respiratory Rate [16-30 br/min] 17 br/mi n (09/03/23 10:54 AM) Temperature [96.8-100.4 DegF] 97.8 DegF (09/03/23 10:54 AM) Mode of Delivery (Oxygen) Room air (09/03/23 10:54 AM) Blood pressure sites Arm, left (09/03/23 10:54 AM) Temperature Route Temporal (09/03/23 10:54 AM) Social History Social History Type Response Smoking Status Never (less than 100 in lifetime) entered on: 04/04/20 Sex Patient Care team information Care Team Personnel Name: Mario COOPER , Alison Cee Position: Reference Physician Member Role: PCP Address: Address: [address] [place] [address]- Name: Jagdish Martinez RN Position: S RN Member Role: Primary Care Nurse Care Team Related Persons Name: LAURE CALDERON Address: home [address] [address] Name: ITZEL DOVE Address: [address] [place] [address]
== END 2023-11-12 08:37 | disposition home or self-care (01) ==
PROVIDERS: PCP Internal Medicine; Visit Provider Physician Assistant
DX: B37.9 Candidiasis, unspecified (principal)
CPT/HCPCS: 99213

== ENCOUNTER 2023-12-02 08:17 | Outpatient (AMB) | payer BC, SELFPAY ==
[2023-12-02 08:31] VITALS: BP 112/78; PULSE 76; TEMP 36.8; O2SAT 100
--- NOTE | 2023-12-02 08:31 | MHC.OFFWIV ---
Intake Vital Signs 12/02/23 08:31 Height 5 ft 4 in Weight 175 lb BMI 30.0 BP 112/78 Blood Pressure Location Rt brachial Position Sitting Pulse 76 Pulse Source Pulse Oximeter Temp 98.2 F Temp Source Oral Pulse Oximetry (%) 100 Oxygen Delivery Method Room Air Intake Visit Reasons: EP-posible UTI/yeast Intake Note: pt c/o possible UTI, ? yeast infection. Itching, redness, white discharge. Started Wednesday. Patient Tobacco Use Status: Former Tobacco user Allergies morphine [MORPHINE] Allergy (Severe, Verified 12/02/23 08:37) VOMITING Opioids - Morphine Analogues Allergy (Mild, Verified 12/02/23 08:37) Vomiting Do you need a note to return to daycare/school/sports/work: No HPI HPI Comments History of Present Illness Details Patient is a 38-year-old female complaining of 4 days of malodorous discharge, itching an uncomfortableness. She denies any urinary symptoms or blood in her urine or fevers. She has been treated several times for bacterial vaginosis and yeast infection and has been going through a bout of these cycles for awhile now. She states this happened in her 20s and then suddenly everything cleared up for many years and now she states it seems to be happening again. She did try to use some tablets to reset her vaginal pH and she was inserting 3 tablets the last tablet was inserted 5 days ago. Her symptoms started the next morning. She has made an appointment with her water manager for next month. [facility] Medical History (Updated 11/12/23 @ 08:26 by Chitra Schultz PA-C) Cervical cancer screening Cholelithiasis Epigastric abdominal pain Iron deficiency anemia Lateral pain of right hip Left axillary fullness History of COVID-19 Hip pain, chronic Pulmonary nodules/lesions, multiple Hemorrhoids COVID-19 long hauler IBS (irritable bowel syndrome) Post-COVID syndrome Diffuse lymphadenopathy Urticaria of unknown origin Left cervical lymphadenopathy Vitamin D deficiency COVID-19 virus infection Obesity (BMI 30.0-34.9) Vitamin B12 deficiency Anxiety disorder Surgical History Hx of lymph node biopsy S/P History of tonsillectomy Family History Father AIDS Substance use disorder Mother AIDS Substance use disorder Maternal Grandmother Alzheimer's disease Dementia HTN (hypertension) Diabetes mellitus Brother Substance use disorder Mental health disorder Son No problems noted. 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 Cognitive needs: No Hearing needs: No Vision needs: Yes Female Reproductive History Menstrual Age of Menarche: 11 Review of Systems Const All systems reviewed & are unremarkable except as noted in HPI and below Physical Exam Vital Signs: Last Vital Signs Temp 98.2 F 12/02/23 08:31 Pulse 76 12/02/23 08:31 BP 112/78 12/02/23 08:31 Pulse Ox 100 12/02/23 08:31 Oxygen Delivery Method Room Air 12/02/23 08:31 BMI result Body Mass Index 30.0 Const General: cooperative, healthy appearing, comfortable, no acute distress and well developed Orientation/consciousness: patient oriented x3 Limitations: no limitations HEENT Head: Yes normal to inspection Ears: hearing grossly normal bilaterally General nose exam: Normal external nose present Face and sinus: Yes normal facial exam Eyes General: appearance normal, both eyes and all related structures Neck Neck: Yes normal visual inspection and Yes full ROM Resp Effort & Inspection: normal respiratory effort and able to speak in complete sentences Skin General skin exam: no rashes or lesions noted Neuro General: patient oriented x3 Extrem General: Yes normal to inspection Results AMB Urinalysis, Automated UA Leukoctes 0 Brittanie/uL Last Edit by Praful Alcaraz CMA on 12/02/23 08:40 UA Nitrite Negative Last Edit by Praful Alcaraz CMA on 12/02/23 08:40 UA Urobilinogen 0.2 mg/dL Last Edit by Praful Alcaraz CMA on 12/02/23 08:40 UA Protein 0 mg/dL Last Edit by Praful Alcaraz CMA on 12/02/23 08:40 UA pH 5.5 Last Edit by Praful Alcaraz CMA on 12/02/23 08:40 UA Blood 0 Giovanni/uL Last Edit by Praful Alcaraz CMA on 12/02/23 08:40 UA Specific [place] 1.015 Last Edit by Praful Alcaraz CMA on 12/02/23 08:40 UA Ketone Negative Last Edit by Praful Alcaraz CMA on 12/02/23 08:40 UA Bilirubin 0 mg/dL Last Edit by Praful Alcaraz CMA on 12/02/23 08:40 UA Glucose 0 mg/dL Last Edit by Praful Alcaraz CMA on 12/02/23 08:40 Results Reviewed Results Reviewed: Laboratory Last Values Urine pH (Auto) 5.5 12/02/23 08:39 Specific [place] (Auto) 1.015 12/02/23 08:39 Urine Protein (Auto) 0 mg/dL 12/02/23 08:39 Glucose (UA)(Auto) 0 mg/dL 12/02/23 08:39 Urine Ketones (Auto) Negative 12/02/23 08:39 Urine Blood (Auto) 0 Giovanni/uL 12/02/23 08:39 Urine Nitrite (Auto) Negative 12/02/23 08:39 Urine Bilirubin (Auto) 0 mg/dL 12/02/23 08:39 Urine Urobilinogen (Auto) 0.2 mg/dL 12/02/23 08:39 Leukocyte Esterase (Auto) 0 Brittanie/uL 12/02/23 08:39 Assessment & Plan Assessment & Plan (1) Vaginal discharge: Code(s): N89.8 - Other specified noninflammatory disorders of vagina Plan: If she does test positive for bacterial vaginosis, patient would like to opt for the pills instead of the gel and she would also need 1 dose of fluconazole because she usually gets a yeast infection after the metronidazole. Plan see above Orders: Orders AMB Urinalysis Automated Today Z13.9 - Encounter for screening, unspecified Bacterial Vaginosis Panel Today N89.8 - Other specified noninflammatory disorders of vagina Coding Level of Care Code Est Pt Level 3 (04348) Diagnoses Vaginal discharge N89.8
== END 2023-12-02 09:00 | disposition home or self-care (01) ==
PROVIDERS: PCP Internal Medicine; Visit Provider Physician Assistant
DX: N89.8 Other specified noninflammatory disorders of vagina (principal)
CPT/HCPCS: 81003; 99213

== ENCOUNTER 2023-12-02 08:59 | Outpatient (REF) | payer BC, SELFPAY ==
[2023-12-02 11:28] LABS: Bacterial Vaginosis PCR NEGATIVE (Negative); Candida Group PCR DETECTED (Not Detect); Candida glab krusei PCR NOT DETECTED (Not Detect); Trichomonas vaginalis PCR NOT DETECTED (Not Detect)
== END 2023-12-02 09:00 | disposition home or self-care (01) ==
LOC: HO.LAB 08:59
PROVIDERS: Visit Provider Physician Assistant
DX: N89.8 Other specified noninflammatory disorders of vagina (principal)
CPT/HCPCS: 0352U

== ENCOUNTER 2024-01-06 09:07 | Outpatient (AMB) | payer BC, SELFPAY ==
--- NOTE | 2024-01-06 09:24 | MHC.OFFWIV ---
Intake Vital Signs 01/06/24 09:25 Height 5 ft 4 in Weight 178 lb BMI 30.6 BP 112/70 Blood Pressure Location Lt brachial Position Sitting Pulse 82 Pulse Source Pulse Oximeter Temp 98.4 F Temp Source Oral Pulse Oximetry (%) 98 Oxygen Delivery Method Room Air Intake Visit Reasons: EP UTI Intake Note: Patient here for burning when urinating and frequent urination that started yesterday Patient Tobacco Use Status: Former Tobacco user Allergies morphine [MORPHINE] Allergy (Severe, Verified 01/06/24 09:25) VOMITING Opioids - Morphine Analogues Allergy (Mild, Verified 01/06/24 09:25) Vomiting Do you need a note to return to daycare/school/sports/work: No HPI HPI Comments History of Present Illness Details Patient is a 38-year-old female complaining of 2 days of increased pressure in her bladder, increased frequency of urination and burning with urination. She denies any fevers, low back pain or flank pain or history of kidney stones. She tells me she did just get a IUD placed 2 days ago so she has seen a little bit of blood in the toilet. [facility] Medical History (Updated 01/06/24 @ 09:52 by Chitra Schultz PA-C) Cervical cancer screening Cholelithiasis Epigastric abdominal pain Iron deficiency anemia Lateral pain of right hip Left axillary fullness History of COVID-19 Hip pain, chronic Pulmonary nodules/lesions, multiple Hemorrhoids COVID-19 long hauler IBS (irritable bowel syndrome) Post-COVID syndrome Diffuse lymphadenopathy Urticaria of unknown origin Left cervical lymphadenopathy Vitamin D deficiency COVID-19 virus infection Obesity (BMI 30.0-34.9) Vitamin B12 deficiency Anxiety disorder Surgical History Hx of lymph node biopsy S/P History of tonsillectomy Family History Father AIDS Substance use disorder Mother AIDS Substance use disorder Maternal Grandmother Alzheimer's disease Dementia HTN (hypertension) Diabetes mellitus Brother Substance use disorder Mental health disorder Son No problems noted. 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 Cognitive needs: No Hearing needs: No Vision needs: Yes Female Reproductive History Menstrual Age of Menarche: 11 Review of Systems Const All systems reviewed & are unremarkable except as noted in HPI and below Physical Exam Vital Signs: Last Vital Signs Temp 98.4 F 01/06/24 09:25 Pulse 82 01/06/24 09:25 BP 112/70 01/06/24 09:25 Pulse Ox 98 01/06/24 09:25 Oxygen Delivery Method Room Air 01/06/24 09:25 BMI result Body Mass Index 30.6 Const General: cooperative, healthy appearing, comfortable and no acute distress Orientation/consciousness: patient oriented x3 HEENT Head: Yes normal to inspection Ears: hearing grossly normal bilaterally General nose exam: Normal external nose present Face and sinus: Yes normal facial exam Neck Neck: Yes normal visual inspection, Yes trachea midline and Yes supple Resp Effort & Inspection: normal respiratory effort and able to speak in complete sentences Skin General skin exam: no rashes or lesions noted Neuro General: patient oriented x3 Psych Appearance: grossly normal Speech and movement: Normal speech and movement present Attitude: cooperative Thought process: Normal thought process present Insight: Good insight present (Psych) Judgement: Good judgement present (Psych) Assessment & Plan Assessment & Plan (1) Urinary tract infection: Code(s): N39.0 - Urinary tract infection, site not specified Qualifiers: Urinary tract infection type: acute cystitis Hematuria presence: with hematuria Qualified Code(s): N30.01 - Acute cystitis with hematuria Plan: UA positive for 2+ blood, 70+ leuks and 15 protein. Sent antibiotic to pharmacy. Educated patient on kidney stones and if her pain gets worse or she starts having low back or flank pain or fevers, she should go to the ED for a kidney stone workup. Plan see above Medications: New cefuroxime axetil 500 mg PO Q12H 10 tabs 0RF Coding Level of Care Code Est Pt Level 3 (99306) Diagnoses Acute cystitis with hematuria N30.01 Urinary tract infection type: acute cystitis Hematuria presence: with hematuria
[2024-01-06 09:25] VITALS: BP 112/70; PULSE 82; TEMP 36.9; O2SAT 98; BMI 30.6
== END 2024-01-06 09:57 | disposition home or self-care (01) ==
PROVIDERS: PCP Internal Medicine; Visit Provider Physician Assistant
DX: Z13.9 Encounter for screening, unspecified (principal); N30.01 Acute cystitis with hematuria

== ENCOUNTER → 2024-01-06 09:07 | Outpatient (BNVA) | payer SELFPAY | PROVIDERS: PCP Internal Medicine; Visit Provider Physician Assistant | DX: N30.01 Acute cystitis with hematuria (principal) | CPT/HCPCS: 81003 ==

== ENCOUNTER 2024-03-16 09:44 | Outpatient (REF) | payer OTHER, SELFPAY ==
[2024-03-16 15:14] LABS: Bacterial Vaginosis PCR NEGATIVE (Negative); Candida Group PCR NOT DETECTED (Not Detect); Candida glab krusei PCR NOT DETECTED (Not Detect); Trichomonas vaginalis PCR NOT DETECTED (Not Detect)
== END 2024-03-16 09:45 | disposition home or self-care (01) ==
LOC: HO.LAB 09:44
PROVIDERS: PCP Internal Medicine; Visit Provider Physician Assistant
DX: N30.01 Acute cystitis with hematuria (principal); N89.8 Other specified noninflammatory disorders of vagina
CPT/HCPCS: 0352U; 81003; 87086; 87088; 87186

== ENCOUNTER 2024-03-16 09:44 | Outpatient (AMB) | payer OTHER, SELFPAY ==
--- NOTE | 2024-03-16 10:44 | MHC.OFFWIV ---
Intake Vital Signs 03/16/24 10:53 Weight 178 lb BP 112/70 Blood Pressure Location Rt brachial Position Sitting Pulse 79 Pulse Source Pulse Oximeter Temp 98.2 F Temp Source Oral Pulse Oximetry (%) 99 Oxygen Delivery Method Room Air Intake Visit Reasons: EP-?UTI Intake Note: Patient here for frequent urination, pain and pressure and itching that has been present for about 2 days. Patient Tobacco Use Status: Former Tobacco user Allergies morphine [MORPHINE] Allergy (Severe, Verified 03/16/24 10:51) VOMITING Opioids - Morphine Analogues Allergy (Mild, Verified 03/16/24 10:51) Vomiting Do you need a note to return to daycare/school/sports/work: No HPI HPI Comments History of Present Illness Details History of Present Illness - The patient is a 39-year-old female presenting with symptoms suggestive of a Urinary Tract Infection. - Symptoms began in January with mild initial intensity, now presenting with significant urgency, pressure, and a burning sensation post-miction, unrelieved by home remedies. - Previous episodes of Bacterial Vaginosis in January, effectively treated with metronidazole pills, currently presenting with no symptoms except concern about associated vaginal odor. - History indicates recurring vaginal conditions, including Bacterial Vaginosis, Yeast Infections, and UTI treatment within the last 2-3 months. - Denies fever, back pain, abdominal pain and does not report abnormal hematuria aside from menstrual blood; recent self-treatment attempts were unsuccessful. No current abnormal vaginal discharge observed, though patient expresses concern over odor. Physical Exam General: Cooperative, healthy appearing, comfortable, no acute distress and well developed Orientation: Patient oriented x3 Limitations: No limitations Head: Normal to inspection Ears: Hearing grossly normal bilaterally Nose: Normal external nose present Face and sinus: Normal facial exam Eyes: Appearance normal, both eyes and all related structures Neck: Normal visual inspection and Yes full ROM Respiratory: Normal respiratory effort and able to speak in complete sentences. Skin: No rashes or lesions noted Neuro: Patient oriented x3 Extremities: Normal to inspection [facility] Medical History (Updated 03/16/24 @ 11:21 by Chitra Schultz PA-C) Cervical cancer screening Cholelithiasis Epigastric abdominal pain Iron deficiency anemia Lateral pain of right hip Left axillary fullness History of COVID-19 Hip pain, chronic Pulmonary nodules/lesions, multiple Hemorrhoids COVID-19 long hauler IBS (irritable bowel syndrome) Post-COVID syndrome Diffuse lymphadenopathy Urticaria of unknown origin Left cervical lymphadenopathy Vitamin D deficiency COVID-19 virus infection Obesity (BMI 30.0-34.9) Vitamin B12 deficiency Anxiety disorder Surgical History Hx of lymph node biopsy S/P History of tonsillectomy Family History Father AIDS Substance use disorder Mother AIDS Substance use disorder Maternal Grandmother Alzheimer's disease Dementia HTN (hypertension) Diabetes mellitus Brother Substance use disorder Mental health disorder Son No problems noted. 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 Cognitive needs: No Hearing needs: No Vision needs: Yes Female Reproductive History Menstrual Age of Menarche: 11 Review of Systems Const All systems reviewed & are unremarkable except as noted in HPI and below Physical Exam Vital Signs: Last Vital Signs Temp 98.2 F 03/16/24 10:53 Pulse 79 03/16/24 10:53 BP 112/70 03/16/24 10:53 Pulse Ox 99 03/16/24 10:53 Oxygen Delivery Method Room Air 03/16/24 10:53 Results AMB Urinalysis, Automated UA Leukoctes 125 Brittanie/uL Last Edit by CURTIS Miller on 03/16/24 11:30 UA Nitrite Negative Last Edit by CURTIS Miller on 03/16/24 11:30 UA Urobilinogen 0.2 mg/dL Last Edit by CURTIS Miller on 03/16/24 11:30 UA Protein 0 mg/dL Last Edit by CURTIS Miller on 03/16/24 11:30 UA pH 5.5 Last Edit by CURTIS Miller on 03/16/24 11:30 UA Blood 200 Giovanni/uL Last Edit by CURTIS Miller on 03/16/24 11:30 UA Specific [place] 1.030 Last Edit by CURTIS Miller on 03/16/24 11:30 UA Ketone Negative Last Edit by CURTIS Miller on 03/16/24 11:30 UA Bilirubin 0 mg/dL Last Edit by CURTIS Miller on 03/16/24 11:30 UA Glucose 0 mg/dL Last Edit by CURTIS Miller on 03/16/24 11:30 Assessment & Plan Assessment & Plan (1) Vaginal odor: Code(s): N89.8 - Other specified noninflammatory disorders of vagina Plan: UA 2+ leuks, neg nitrites, 3+ blood The patient will commence treatment for a suspected Urinary Tract Infection with cefuroxime at a regimen of twice daily for five days. A urine culture will be performed to confirm bacterial infection. Concurrently, a Bacterial Vaginosis panel will be conducted with a self-swab to assess bacterial presence. Metronidazole therapy will be initiated should the panel confirm bacterial vaginosis. Consideration of probiotic supplementation is recommended for stabilization of vaginal mamie and pH balance. It is advised that the patient conduct follow-up consultations with a document restorer to rule out any anatomical or hormonal conditions contributing to recurrent infections as she thinks she is perimenopausal. Patient was informed and verbally consented to the use of an ambient scribe for clinic note documentation during this visit. (2) Urinary tract infection: Code(s): N39.0 - Urinary tract infection, site not specified Qualifiers: Hematuria presence: with hematuria Urinary tract infection type: acute cystitis Qualified Code(s): N30.01 - Acute cystitis with hematuria Plan: as above Orders: Orders Urine Culture Today N39.0 - Urinary tract infection, site not specified Bacterial Vaginosis Panel Today N89.8 - Other specified noninflammatory disorders of vagina Medications: New cefuroxime axetil 500 mg PO Q12H 10 tabs 0RF Coding Level of Care Code Est Pt Level 4 (49741) Diagnoses Vaginal odor N89.8 Acute cystitis with hematuria N30.01 Hematuria presence: with hematuria Urinary tract infection type: acute cystitis
[2024-03-16 10:53] VITALS: BP 112/70; PULSE 79; TEMP 36.8; O2SAT 99
== END 2024-03-16 12:02 | disposition home or self-care (01) ==
PROVIDERS: PCP Internal Medicine; Visit Provider Physician Assistant
DX: N89.8 Other specified noninflammatory disorders of vagina (principal); N30.01 Acute cystitis with hematuria; Z13.9 Encounter for screening, unspecified